=== PATIENT | male | born 1975 | race Caucasian/White ===

== ENCOUNTER 2018-03-25 12:24 | Emergency (ER) | payer BC ==
--- NOTE | 2018-03-25 12:34 | UC ---
Throat Pain/Nasal Jose HPI - HPI Summary HPI Summary: 42 yo male presents with sinus pain/pressure/congestion and green nasal discharge since yesterday. He has been taking sudafed with no relief. Says that he thinks he has a sinus infection. Denies fever, chills, sore through, cough. - History of Current Complaint Stated Complaint: SINUS COMPLAINT Time Seen by Provider: 03/25/18 12:33 Hx Obtained From: Patient Onset/Duration: Sudden Onset Severity: Mild Pain Intensity: 4 Pain Scale Used: 0-10 Numeric - Allergies/Home Medications Allergies/Adverse Reactions: Allergies Allergy/AdvReac Type Severity Reaction Status Date / Time No Known Allergies Allergy Verified 03/25/18 12:38 Home Medications: Home Medications Escitalopram (NF) [Lexapro 10 mg (NF)] 10 mg PO DAILY 03/25/18 [History Confirmed 03/25/18] Hydrochlorothiazide TAB* [Hydrodiuril TAB*] 25 mg PO DAILY 03/25/18 [History Confirmed 03/25/18] Insulin Lispro [Humalog] 0 unit SC ACHS 03/25/18 [History Confirmed 03/25/18] Insulin NPH Human Isophane [Humulin N Kwikpen] 10 unit SC BEDTIME 03/25/18 [ History Confirmed 03/25/18] Insulin NPH Human Isophane [Humulin N Kwikpen] 15 unit SC QPM 03/25/18 [History Confirmed 03/25/18] Insulin NPH Human Isophane [Humulin N Kwikpen] 25 unit SC QAM 03/25/18 [History Confirmed 03/25/18] Insulin Regular, Human [Humulin R U-500 Kwikpen] 2 unit SC BID 03/25/18 [ History Confirmed 03/25/18] Lisinopril TAB* [Prinivil TAB*] 40 mg PO DAILY 03/25/18 [History Confirmed 03/25] Multivitamin with Minerals [One Daily Complete] 1 each PO DAILY 03/25/18 [ History Confirmed 03/25/18] Simvastatin TAB(NF) [Zocor(NF)] 20 mg PO DAILY 03/25/18 [History Confirmed 03/25] PMH/Surg Hx/FS Hx/Imm Hx Endocrine History: Diabetes, Dyslipidemia Cardiovascular History: Hypertension Psychological History: Anxiety - Surgical History Surgical History: None - Family History Known Family History: Positive: Hypertension Negative: Diabetes - Social History Occupation: Employed Full-time Lives: With Family Alcohol Use: Rare Substance Use Type: None Smoking Status (MU): Never Smoked Tobacco Review of Systems Constitutional: Negative Skin: Negative Eyes: Negative ENT: Nasal Discharge, Sinus Congestion, Sinus Pain/Tenderness Respiratory: Negative Cardiovascular: Negative Gastrointestinal: Negative Neurological: Negative Psychological: Negative All Other Systems Reviewed And Are Negative: Yes Physical Exam - Summary Physical Exam Summary: GENERAL: NAD. WDWN. No pain distress. SKIN: No rashes, sores, lesions, or open wounds. HEENT: Head: AT/NC Eyes: EOM intact. Conjunctiva clear without inflammation or discharge. Ears: Hearing grossly normal. TMs intact, no bulging, erythema, or edema. Nose: Nasal mucosa pink and moist. Mildly TTP maxillary and frontal sinus. Throat: Posterior oropharynx without exudates, erythema, or tonsillar enlargement. Uvula midline. NECK: Supple. Nontender. No lymphadenopathy. CHEST: CTAB. No r/r/w. No accessory muscle use. Breathing comfortably and in no distress. CV: RRR. Without m/r/g. Pulses intact. Cap refill <2seconds NEURO: Alert. CN II-XII grossly intact. PSYCH: Age appropriate behavior. Triage Information Reviewed: Yes Vital Signs: Vital Signs: Temp Pulse Resp BP Pulse Ox 99.2 F 82 16 118/72 98 03/25/18 12:45 03/25/18 12:45 03/25/18 12:45 03/25/18 12:45 03/25/18 12:45 Vital Signs Reviewed: Yes Throat Pain/Nasal Course/Dx - Course Course Of Treatment: Sinusitis - could very well be viral given that his symptoms began yesterday. Advised to stop sudafed and try mucinex, nasonex, and netti pot. - Differential Dx/Diagnosis Provider Diagnoses: Sinusitis Discharge - Sign-Out/Discharge Documenting (check all that apply): Patient Departure All imaging exams completed and their final reports reviewed: No Studies - Discharge Plan Condition: Stable Disposition: HOME Patient Education Materials: Rhinosinusitis (DC) Forms: *Work Release Referrals: Kevin Ochoa MD [Primary Care Provider] - Additional Instructions: If you develop a fever, shortness of breath, chest pain, new or worsening symptoms - please call your PCP or go to the ED. 1) Stop sudafed and try taking Mucinex and using Flonase or Nasonex over the counter. If your symptoms persist for another 4-5 days, please call our office. - Billing Disposition and Condition Condition: STABLE Disposition: Home
[2018-03-25 12:48] VITALS: BP 118/72
== END 2018-03-25 13:00 | disposition home or self-care (01) ==
LOC: UCCORT 12:24
DX: J32.9 Chronic sinusitis, unspecified (principal); E11.9 Type 2 diabetes mellitus without complications; Z79.4 Long term (current) use of insulin; I10 Essential (primary) hypertension; F41.9 Anxiety disorder, unspecified
CPT/HCPCS: 99212; G0463

== ENCOUNTER 2018-07-03 10:16 | Emergency (ER) | payer BC ==
[2018-07-03 10:31] VITALS: BP 140/86
--- OUTSIDE RECORDS SUMMARY | 2018-07-03 10:48 | XMS REPORT | Continuity of Care Document ---
:1975 External Reference #:[id number] Author Name Kevin Vaughn M.D. Address [address] [place] [address], [address] [place] [address] Care Team Providers Name Role Phone Kevin Vaughn M.D. Care Team Information Reproduction Specialist Unavailable Payers Type Date Identification Numbers Payment Provider Subscriber Effective: 2007 Policy Number: [id number] [facility] [place] PayID: [id number] [address] [address] [place] [address] Effective: 2006 Policy Number: [id number] [facility] [place] Expires: 2007 PayID: [id number] [address] [address] [place] [address] Advance Directives Description No Information Available Problems Date Description Provider Status Onset: 09/13/2010 Type 1 diabetes mellitus uncontrolled Charli Cummins M.D. Active Onset: 09/13/2010 Hyperlipidemia Charli Cummins M.D. Active Onset: 09/13/2010 Benign essential hypertension Charli Cummins M.D. Active Onset: 08/13/2015 Type 1 diabetes mellitus Charli Cummins M.D. Active Onset: 01/11/2017 Anxiety state Charli Cummins M.D. Active Onset: 09/19/2011 Obesity Charli Cummins M.D. Inactive Inactive: 09/20/2012 Onset: 01/29/2012 Overweight Charli Cummins M.D. Inactive Inactive: 11/05/2014 Family History Date Family Member(s) Problem(s) Comments : (age 73 Years) Father due to Heart Disease Mother 67 First Sister 49 Social History Type Date Description Comments Sex Unknown Marital Status Cigarette Use Negative For current cigarette smoker ETOH Use does not use alcohol Tobacco Use Start: Unknown Patient has never smoked Smoking Status Reviewed: 06/17/18 Patient has never smoked Exercise Type/Frequency exercises regularly Allergies, Adverse Reactions, Alerts Description No Known Drug Allergies Medications Medication Date Status Form Strength Qnty SIG Indications Ordering Provider Lancet Device 02/26 Active Misc 1unit use as Kevin With Ejector s directed Emory Vaughn BD Pen 11/09 Active Misc 31G X 8 200un use as Kevin Needle/Short/Ultr mm its directed- [place], afine/31G X 12/19" bid-tid M.D. BD Insulin 11/09 Active Misc 31G X 200un use qid Kevin Syringe /12/19" 0.5 its or as Joset, Ultrafine/0.5ML/3 ML directed M.DSilvano 1G X 12/19" Accu-Chek Compact 01/11 Active Strips 153un test 8-10 Kevin Test Drum its times per cecelia Vaughn M.DSilvano Escitalopram 08/25 Active Tablets 10mg 30tab take 1 F41.9 Kevin Oxalate s tablet by [place], mouth M.D. every day Humalog Kwikpen 07/10 Active Solution 100Unit/M 30uni Use as Pen-Inject L ts Directed Johana, With M.D. Meals Per Sliding Scale Maximum Daily Dose 15 Units Simvastatin 08/13 Active Tablets 40mg 90tab Take 1 E10.9 Kevin s Tablet By [place], Mouth M.D. Every Day Accu-Chek Compact 06/17 Active Strips 408un use as E10.9 Kevin Plus its directed, [place], 8-10 M.D. times daily Glucagon 01/30 Active Kit 1mg 2unit use as E10.9 Charli M. Emergency s directed Emory Cummins Accu-Chek Soft 03/12 Active Misc 200un use as E11.9 Kevin Touch Lancets its upto four [place], times a M.D. day or as directed Hydrochlorothiazi 12/04 Active Tablets 25mg 90tab take 1 Kevin de s tablet by Johana, mouth one M.D. time daily Lisinopril 07/19 Active Tablets 40mg 90tab Take 1 s Tablet By [place], Mouth M.D. Every Day Multivitamins Active Powder 1 PO qd Charli Emory Cummins Aspirin Active Tablets 325mg 1 po qd Naproxen Active Tablets 500mg 1 by mouth twice a day as needed Humulin N Active Suspension 100Unit/M 20uni inject 25 L ts units in [place], the in M.D. the morning, inject 15 units in the evening, 5 units at bedtime Amoxicillin 09/06 Hx Tablets 875mg 20tab 1 by Charli Martinez s mouth Maria G, - twice a M.D. 09/16 dayx days Amoxicillin 07/17 Hx Capsules 500mg 21cap take one J01.10 s three Chetanishaky, - times a UPTWIST SPINNER 07/25 day for days Bactrim DS 04/11 Hx Tablets 800-160mg 20tab 1 by Charli Martinez s mouth White, - twice a M.D. Amoxicillin/Clavu 11/13 Hx Tablets 500-125mg 20tab 1 by Charli Martinez lanstefani s mouth White, - twice a M.D. Amoxicillin 09/05 Hx Tablets 875mg 20tab 1 by Charli Martinez s mouth White, - twice a M.D. BD Syringe 08/23 Hx 0.5ml 200un Use as Charli Martinez its Directed White, - M.D. 11/09 Amoxicillin 07/12 Hx Tablets 875mg 20tab 1 by Charli Martinez s mouth White, - twice a M.D. Amoxicillin 04/04 Hx Tablets 500mg 30tab 1 by Charli Martinez s mouth White, - three M.D. 04/14 times day x 10 days Accu-Chek Compact 01/09 Hx Strips 408un Use as Charli Martinez its Directed White, - 8-10 M.D. 02/15 Daily Amoxicillin 11/04 Hx Tablets 500mg 30tab 1 by Charli Martinez s mouth White, - three M.D. 11/14 times day Amoxicillin 07/22 Hx Tablets 500mg 30tab 1 by Charli Martinez s mouth White, - three M.D. 08/01 times day Amoxicillin 05/21 Hx Tablets 500mg 30tab 1 by Charli Martinez s mouth White, - three M.D. 05/31 times day Amoxicillin 04/21 Hx Tablets 500mg 30tab 1 by Charli Martinez s mouth White, - three M.D. 05/01 times day Amoxicillin 11/05 Hx Tablets 500mg 30tab 1 by Charli Martinez s mouth White, - three M.D. 11/15 times day Amoxicillin/Clavu 09/11 Hx Tablets 500-125mg 20tab 1 by Charli watson Potassium s mouth White, - twice a M.D. Amoxicillin/Clavu 08/07 Hx Tablets 500-125mg 20tab 1 by Charli watson Potassium s mouth White, - twice a M.D. Meclizine HCL 07/09 Hx Tablets 25mg 30tab 1 by Jeremy.11 Charli Martinez s mouth White, - every 6 M.D. 04/06 hours needed dizziness Azithromycin 06/29 Hx Tablets 250mg 6tabs 2 by Charli Martinez mouth White, - daily for M.D. 07/04 and then 1 by mouth daily for four days Azithromycin 05/20 Hx Tablets 250mg 6tabs 2 by Charli Martinez mouth White, - daily for M.D. 05/25 and then 1 by mouth daily for four days Amoxicillin 02/19 Hx Tablets 500mg 30tab 1 by 462 Charli Martinez s mouth White, - three M.D. 03/01 times day Humalog Kwikpen 01/30 Hx Sopn 100Unit/M 15ml as Charli L directed Maria G, - per M.D. 01/29 scale Humalog 01/30 Hx Solution 100Unit/M 101-150 Charli Martinez L 4Maria G jones, - 151-200 M.D. 01/29 6u, 201-250 8u, 251-300 10u, 301-350 12u, 351-400 14u. Humalog Kwikpen 01/30 Hx Solution 100Unit/M 15uni Use as Pen-Inject L ts Directed Maria G, - Per M.D. 10/20 Sliding Scale Amoxicillin 11/07 Hx Tablets 875mg 20tab 1 po bid s Maria G - M.D. 11/17 Azithromycin 08/01 Hx Tablets 250mg 6tabs 2 po daily for White, - one day M.D. 08/06 and 1 po daily for four days Azithromycin 06/04 Hx Tablets 250mg 6tabs 2 po daily for White, - one day M.D. 06/09 and 1 po daily for four days Humalog 05/30 Hx Solution 100Unit/M 20uni inject L ts using Maria G, - sliding M.D. 02/19 scale over 200 then use 2 units if over 300 use 5 units if over 400 use 8 units maximum daily dose 15 Azithromycin 03/17 Hx Tablets 250mg 6tabs 2 po daily for White, - one day M.D. 03/22 and 1 po daily for four days BD Pen Needle 12/19 Hx 200un use as E11.9 Charli Martinez Short 31GX5/ its directed, Maria G, - bid-tid M.D. 11/09 Amoxicillin 11/18 Hx Tablets 500mg 30tab 1 po tid s Maria G - M.D. 11/28 BD Insulin 09/20 Hx Misc 31G X 200un Charli Martinez Syringe " its Maria G, Ultrafine/U-100/0 - 0.5 ML M.D. .5ML/31G X " 10/24 Lancets 09/20 Hx Misc 26G 200un test 8 E10.9 Silvano its -10 times Maria G, - every day M.D. 01/11 Cefuroxime Axetil 08/30 Hx Tablets 500mg 20tab 1 po bid s Meg Cummins M.D. 09/09 Amoxicillin 07/23 Hx Tablets 500mg 30tab 1 po tid Charli Martinez Meg Beard M.D. 08/02 Pen Claxton 29G X 05/24 Hx Misc 29G X 200un Charli Martinez mm 12mm Meg Ralph M.D. 06/17 Cefuroxime Axetil 09/25 Hx Tablets 500mg 20tab 1 po bid 461.8 Carlotta an Aceves, - R.N.,F.N.P 10/04 . Pen Claxton Kwik 01/10 Hx 200un Charli Martinez Pen Short Meg Ralph M.D. 05/24 Glucagon 01/10 Hx Kit 1mg 2unit Use as 250.01 Charli Martinez Emergency Kit s Meg Montaño M.D. 01/30 Humulin R 01/10 Hx Solution 100Unit/M 10uni inject 2 E10.9 Kevin L ts units two [place], - times M.DSilvano 06/17 daily with n. Humalog Kwikpen 09/13 Hx Solution 100Unit/M 15uni Use as Charli Martinez /2010 L ts Sasha Cummins - as Needed M.DSilvano 01/28 BD Insulin Syr 06/16 Hx 0.5ml 200un use as Charli Martinez Meg Kyle.Miguelangel 12/10 Humalog 05/06 Hx Solution 100Unit/M 10ml uad Charli Martinez Meg Redman M.D. 05/19 Simvastatin 05/06 Hx Tablets 10mg 90tab Take 1 250.01 Charli Martinez s Tablet By Maria G - Mouth One M.DSilvano 08/13 Time Daily BD Ultra Fine 01/05 Hx Misc 3/10cc;30 200un uaconsuelo Martinez Syringe G/1/2" paco Cummins, 3/10cc;30G X 1/2" - M.DSilvano 03/06 Short Pen Claxton 01/05 Hx 200un uad Charli Martinez Meg Ralph.DSilvano 09/06 Amoxil 02/25 Hx Capsules 500mg 30cap 1 PO 3 X 381.01 Debora s Per Day X Elle, - 10 Days R.N.,F.N.P 03/08 . Glucagon 11/12 Hx Injection 10mg use sq, 250.[address] prn for Maria G, - hypoglyce M.D. 11/12 Glucagon 11/12 Hx Injection 1mg 2unit uad 250.01 Charli Martinez /Lane s Meg Cummins M.D. 01/10 Zithromax Z-Eddi 08/23 Hx Tablets 250mg 6tabs 2 by Charli Martinez mouth Maria G, - today and MBrown 11/26 then daily for 4 days BD Ultrafine 11/08 Hx 200un uad 250.01 Charli Martinez Syringe 30G c Meg Ralph.DSilvano 09/06 BD Ultrafine 07/19 Hx 200un uad Charli Martinez III Pen Claxton /2004 its Maria G (Short) - Shelley.DSilvano 01/05 HCTZ 11/16 Hx Tablets 25mg 90tab 1 po qd Charli Martinez /2004 s Meg CumminsDSilvano 12/04 Accu-Chek Comfort 11/16 Hx Strips 200un uad 250.01 Charli Martinez Curve Test Strips /2004 Meg Ralph.DSilvano 04/24 Soft Touch 11/16 Hx 400un use as 250.01 Charli Martinez Lancets its Meg Montaño.DSilvano 09/20 Glucagon 11/16 Hx Injection 10mg 2Kits use as 250.01 Charli Martinez needed Maria G, - for low M.DSilvano 11/12 blood sugar Syringes Ultra 11/16 Hx .5cc;29G; 200un use as 250.01 Charli Martinez Comfort Insulin /08/07" its directed Meg Cummins M.DSilvano 11/08 Strattera 11/16 Hx Capsules 60mg 408ca Use as 250.01 Unknown ps Directed - 05/24 Carafate 11/16 Hx Suspension 1GM/10ML 408un Use as 250.01 Unknown its Directed - 05/24 Strattera 11/16 Hx Capsules 60mg 408ca Use as 250.01 Unknown ps Directed - 05/24 Accu-Chek Compact 11/16 Hx Strips 408un use as 250.01 Charli Rosa. Test its directed, Maria G, - 8-10 M.D. 06/17 times every day Captopril Hx Tablets 25mg 60tab 1 po bid Carlotta /0000 s Yola, - R.N.,F.N.P 07/19 Humulin R Hx Injection 100Units/ 3Vial 2 units Charli M. /0000 ML s bid with Maria G, - N. M.D. 01/10 Humalog Pen Hx Injection 100Units/ 45ml ua Charli M. /0000 ML needed, Maria G, - per M.D. 05/30 scale Humalog Hx Injection 100Units/ 2Vial uad Charli M. /0000 ML s Maria G, - M.D. 08/06 Medications Administered in Office Medication Date Status Form Strength Qnty SIG Indications Ordering Provider Admin Of Administered Injection Injection/B Vaccine,One 017 P Schedule Vaccine Admin Of Administered Injection Injection/B Vaccine,One 017 P Schedule Vaccine Admin Of Administered Injection Injection/B Vaccine,One 016 P Schedule Vaccine Admin Of Administered Injection Injection/B Vaccine,One 016 P Schedule Vaccine Admin Of Administered Injection Charli M. Vaccine,One 014 Emory Cummins Vaccine Admin Of Administered Injection Charli M. Vaccine,One 013 Emory Cummins Vaccine Admin Of Administered Injection Charli M. Vaccine,One 012 Emory Cummins Vaccine Admin Of Administered Injection Charli M. Vaccine,One 011 Emory Cummins Vaccine Admin Of Administered Injection Charli M. Vaccine,One 010 Emory Cummins Vaccine Admin Of H1N1 Administered Injection Charli M. Flu A Vaccine 010 Emory Cummins Admin Of Administered Injection Charli M. Vaccine,One 009 Emory Cummins Vaccine Admin Of Administered Injection Charli M. Vaccine,One 008 Emory Cummins Vaccine Immunizations CPT Code Status Date Vaccine Lot # [id number] Given 06/01/2017 Flucelvax Quad, 0.5mL, [facility] [address]-76 [id number] Given 08/25/2016 Pneumococcal Vaccine, [facility] 9112-4185-46, 0.5 ML [id number] Q2037 Given 04/21/2016 Fluvirin 0.5 ML,[facility] 36020-821-30 [id number] Q2037 Given 04/21/2016 Fluvirin 0.5 ML,[facility] 34801-446-68 Q2037 Given 08/13/2015 Fluvirin 0.5 ML,[facility] 16587-424-46 [id number] Given 08/13/2015 Prevnar 13, [facility] 6629-7127-41. 0.5 ML [id number] Q2037 Given 06/03/2014 Fluvirin 0.5 ML,[facility] 68045-012-03 [id number] Q2037 Given 05/30/2013 Fluvirin 0.5 ML,[facility] 06449-054-36 [id number] Q2037 Given 05/24/2012 Fluvirin 0.5 ML,[facility] 56659-548-40 91708 Given 05/19/2011 Flu Vaccine Split Virus(Old 2010) [id number] Given 05/13/2010 Flu Vaccine Split Virus(2010) [id number] Given 05/06/2009 Flu Vaccine Split Virus(2010) 61396 Given 05/05/2008 Flu Vaccine Split Virus(2010) [id number] Vital Signs Date Vital Result Comment 06/17/2018 4:07pm Weight 267.00 lb Height 72 inches 6'0" BP Systolic 120 mmHg BP Diastolic 80 mmHg Heart Rate 80 /min BMI (Body Mass Index) 36.2 kg/m2 02/18/2018 2:19pm Weight 264.00 lb Height 72 inches 6'0" BP Systolic 128 mmHg BP Diastolic 72 mmHg Heart Rate 73 /min BMI (Body Mass Index) 35.8 kg/m2 09/20/2017 3:18pm Weight 267.12 lb Height 72 inches 6'0" BP Systolic 126 mmHg BP Diastolic 70 mmHg Heart Rate 75 /min BMI (Body Mass Index) 36.2 kg/m2 07/17/2017 10:51am Weight 260.38 lb Height 72 inches 6'0" BP Systolic 130 mmHg BP Diastolic 70 mmHg Body Temperature 98.8 F Heart Rate 81 /min Respiratory Rate 18 /min BMI (Body Mass Index) 35.3 kg/m2 06/01/2017 3:44pm Weight 259.50 lb Height 72 inches 6'0" BP Systolic 126 mmHg BP Diastolic 72 mmHg Heart Rate 83 /min BMI (Body Mass Index) 35.2 kg/m2 01/11/2017 3:00pm Weight 256.50 lb Height 72 inches 6'0" BP Systolic 122 mmHg BP Diastolic 76 mmHg Heart Rate 84 /min BMI (Body Mass Index) 34.8 kg/m2 08/25/2016 3:59pm Weight 250.00 lb Height 72 inches 6'0" BP Systolic 122 mmHg BP Diastolic 80 mmHg Heart Rate 76 /min BMI (Body Mass Index) 33.9 kg/m2 04/21/2016 4:06pm Weight 249.00 lb Height 72 inches 6'0" BP Systolic 120 mmHg BP Diastolic 80 mmHg Heart Rate 84 /min BMI (Body Mass Index) 33.8 kg/m2 12/17/2015 4:00pm Weight 251.00 lb Height 72 inches 6'0" BP Systolic 102 mmHg BP Diastolic 72 mmHg BP Systolic Recheck 108 mmHg BP Diastolic Recheck 72 mmHg Heart Rate 96 /min BMI (Body Mass Index) 34.0 kg/m2 08/13/2015 3:38pm Weight 246.00 lb Height 72 inches 6'0" BP Systolic 124 mmHg BP Diastolic 80 mmHg Heart Rate 88 /min BMI (Body Mass Index) 33.4 kg/m2 04/07/2015 3:00pm Weight 249.00 lb Height 72 inches 6'0" BP Systolic 124 mmHg BP Diastolic 80 mmHg Heart Rate 102 /min BMI (Body Mass Index) 33.8 kg/m2 11/05/2014 4:07pm Weight 249.00 lb Height 72 inches 6'0" BP Systolic 130 mmHg BP Diastolic 80 mmHg Heart Rate 88 /min BMI (Body Mass Index) 33.8 kg/m2 10/20/2014 3:17pm Weight 250.00 lb Height 72 inches 6'0" BP Systolic 138 mmHg BP Diastolic 70 mmHg Heart Rate 82 /min BMI (Body Mass Index) 33.9 kg/m2 07/09/2014 11:17am Weight 243.00 lb Height 72 inches 6'0" BP Systolic 130 mmHg BP Diastolic 74 mmHg Heart Rate 64 /min BMI (Body Mass Index) 33.0 kg/m2 06/03/2014 4:14pm Weight 247.00 lb Height 72 inches 6'0" BP Systolic 142 mmHg BP Diastolic 70 mmHg Heart Rate 76 /min BMI (Body Mass Index) 33.5 kg/m2 02/19/2014 4:31pm Weight 244.00 lb Height 72 inches 6'0" BP Systolic 124 mmHg BP Diastolic 70 mmHg Body Temperature 101.6 F Heart Rate 76 /min BMI (Body Mass Index) 33.1 kg/m2 01/30/2014 3:46pm Weight 240.00 lb BP Systolic 116 mmHg LG Cuff BP Diastolic 80 mmHg LG Cuff Heart Rate 88 /min 10/03/2013 4:00pm Weight 242.00 lb BP Systolic 126 mmHg LG Cuff BP Diastolic 76 mmHg LG Cuff Heart Rate 84 /min 05/30/2013 2:54pm Weight 238.00 lb BP Systolic 140 mmHg LG Cuff BP Diastolic 74 mmHg LG Cuff Heart Rate 60 /min 01/17/2013 3:49pm Weight 233.00 lb Height 72 inches 6'0" BP Systolic 116 mmHg BP Diastolic 74 mmHg Heart Rate 92 /min BMI (Body Mass Index) 31.6 kg/m2 09/20/2012 3:41pm Weight 235.00 lb Height 72 inches 6'0" BP Systolic 126 mmHg BP Diastolic 68 mmHg Heart Rate 76 /min BMI (Body Mass Index) 31.9 kg/m2 05/24/2012 3:58pm Weight 231.00 lb Height 72 inches 6'0" BP Systolic 122 mmHg BP Diastolic 82 mmHg Heart Rate 72 /min BMI (Body Mass Index) 31.3 kg/m2 01/29/2012 4:01pm Weight 228.00 lb Height 72 inches 6'0" BP Systolic 126 mmHg BP Diastolic 78 mmHg Heart Rate 80 /min BMI (Body Mass Index) 30.9 kg/m2 09/25/2011 3:14pm Height 72 inches 6'0" BP Systolic 144 mmHg BP Diastolic 80 mmHg Heart Rate 98.6 /min 09/19/2011 3:52pm Weight 232.00 lb Height 72 inches 6'0" BP Systolic 122 mmHg BP Diastolic 80 mmHg Heart Rate 72 /min BMI (Body Mass Index) 31.5 kg/m2 05/19/2011 3:46pm Weight 225.00 lb Height 72 inches 6'0" BP Systolic 128 mmHg BP Diastolic 84 mmHg Heart Rate 88 /min BMI (Body Mass Index) 30.5 kg/m2 01/10/2011 4:31pm Weight 225.00 lb Height 72 inches 6'0" BP Systolic 144 mmHg BP Diastolic 76 mmHg BP Systolic Recheck 128 mmHg BP Diastolic Recheck 82 mmHg Heart Rate 76 /min BMI (Body Mass Index) 30.5 kg/m2 09/13/2010 4:38pm Weight 220.00 lb Height 72 inches 6'0" BP Systolic 124 mmHg BP Diastolic 86 mmHg Heart Rate 72 /min BMI (Body Mass Index) 29.8 kg/m2 05/13/2010 2:55pm Weight 224.00 lb Height 72 inches 6'0" BP Systolic 110 mmHg LG Cuff BP Diastolic 72 mmHg LG Cuff Heart Rate 88 /min BMI (Body Mass Index) 30.4 kg/m2 01/04/2010 2:43pm Weight 222.00 lb BP Systolic 140 mmHg LG Cuff BP Diastolic 76 mmHg LG Cuff BP Systolic Recheck 120 mmHg BP Diastolic Recheck 87 mmHg Heart Rate 60 /min 09/08/2009 2:49pm Weight 222.00 lb BP Systolic 148 mmHg BP Diastolic 80 mmHg BP Systolic Recheck 122 mmHg BP Diastolic Recheck 84 mmHg Heart Rate 88 /min 05/06/2009 3:00pm Weight 221.00 lb BP Systolic 140 mmHg BP Diastolic 70 mmHg Heart Rate 80 /min 01/05/2009 3:44pm Weight 219.00 lb BP Systolic 110 mmHg BP Diastolic 66 mmHg Heart Rate 80 /min Glucose Meter 138 FBS AT [facility]. 09/01/2008 2:59pm Weight 210.00 lb BP Systolic 140 mmHg BP Diastolic 64 mmHg BP Systolic Recheck 123 mmHg BP Diastolic Recheck 60 mmHg Heart Rate 88 /min 05/05/2008 2:45pm Weight 212.00 lb BP Systolic 120 mmHg BP Diastolic 58 mmHg Heart Rate 84 /min 01/01/2008 2:07pm Weight 209.00 lb BP Systolic 130 mmHg BP Diastolic 76 mmHg Heart Rate 84 /min 08/21/2007 4:19pm Weight 208.00 lb BP Systolic 140 mmHg BP Diastolic 82 mmHg BP Systolic Recheck 122 mmHg BP Diastolic Recheck 80 mmHg 04/24/2007 3:19pm Weight 209.00 lb BP Systolic 156 mmHg BP Diastolic 56 mmHg Heart Rate 92 /min 02/25/2007 2:46pm Weight 212.00 lb BP Systolic 118 mmHg BP Diastolic 78 mmHg Heart Rate 76 /min 12/26/2006 3:05pm Weight 210.00 lb BP Systolic 130 mmHg BP Diastolic 68 mmHg Heart Rate 88 /min 08/22/2006 1:32pm Weight 215.00 lb BP Systolic 120 mmHg BP Diastolic 72 mmHg Body Temperature 98.4 F Heart Rate 76 /min 08/15/2006 8:53am Weight 210.00 lb BP Systolic 142 mmHg BP Diastolic 88 mmHg BP Systolic Recheck 122 mmHg BP Diastolic Recheck 88 mmHg Heart Rate 76 /min Glucose Meter 165 5HRS Fasing, AT [facility] [employer]. 03/14/2006 2:44pm Weight 208.00 lb BP Systolic 130 mmHg BP Diastolic 80 mmHg Heart Rate 80 /min 11/08/2005 3:08pm Weight 212.00 lb BP Systolic 120 mmHg BP Diastolic 76 mmHg Heart Rate 76 /min 07/19/2005 2:57pm Weight 209.00 lb BP Systolic 154 mmHg BP Diastolic 70 mmHg BP Systolic Recheck 150 mmHg BP Diastolic Recheck 84 mmHg Heart Rate 84 /min BMI (Body Mass Index) 6.2 kg/m2 03/22/2005 3:12pm Weight 204.00 lb Height 73 inches 6'1" BP Systolic 162 mmHg BP Diastolic 82 mmHg Heart Rate 92 /min BMI (Body Mass Index) 26.9 kg/m2 12/21/2004 3:50pm Weight 209.00 lb Height 73 inches 6'1" BP Systolic 158 mmHg BP Diastolic 88 mmHg BP Systolic Recheck 140 mmHg BP Diastolic Recheck 90 mmHg Heart Rate 80 /min BMI (Body Mass Index) 27.6 kg/m2 11/16/2004 4:29pm Weight 216.00 lb Height 73 inches 6'1" BP Systolic 160 mmHg BP Diastolic 94 mmHg Heart Rate 80 /min BMI (Body Mass Index) 28.5 kg/m2 Results Test Date Facility Test Result H/L Range Note Laboratory test 06/12/2018 [facility] %A1c 7.5 % High 4.8- 6.0 1 finding [address] [address] [phone] Lipid Studies 06/12/2018 [facility] Triglycerides 91 mg/dL 0-[address] [id number] [phone] Cholesterol 166 mg/dL 120-200 HDL Cholesterol 50.0 mg/dL 40-60 VLDL (Calc.) 18 mg/dL <31 Cholesterol/HDL 3.32 Ratio <5.00 LDL (Calc.) 98 mg/dL 0-99 2 Comp. Metabolic 06/12/2018 [facility] Glucose 60.3 mg/dL Low 65-[address] [id number] [phone] BUN 13.4 mg/dL 7-21 Co2 26.0 mmol/L 22-30 Sodium 140 mmol/L 137-145 Potassium 4.6 mmol/L 3.6-5.2 Chloride 104 mmol/L 98-110 Calcium 9.8 mg/dL 9-10.5 Creatinine 0.84 mg/dL 0.52-1.25 eGFR (Male) >60 3 Total Protein 7.08 g/dL 6.3-8.2 Albumin 3.76 g/dL 3.3-4.50 Sgot (Ast) 14.0 U/L 5-40 Alk Phosphatase 93.0 U/L 38-126 Total Bilirubin 0.46 mg/dL 0.2-1.3 SGPT (Alt) 13.0 U/L 7-56 Anion Gap (Calc) 10.0 7-16 BUN/Crea Ratio 16.0 Ratio 7-25 Globulin (Calc) 3.32 g/dL 2.3-3.5 A/G Ratio (Calc) 1.1 Ratio 1.1-2.2 Laboratory test 02/15/2018 [facility] %A1c 7.3 % High 4.8- 6.0 4 finding [address] [id number] [phone] Lipid Studies 02/15/2018 [facility] Triglycerides 59 mg/dL 0-[address] [address] [phone] Cholesterol 139 mg/dL 120-200 HDL Cholesterol 48.0 mg/dL 40-60 VLDL (Calc.) 12 mg/dL <31 Cholesterol/HDL 2.90 Ratio <5.00 LDL (Calc.) 79 mg/dL 0-99 5 Comp. Metabolic 02/15/2018 [facility] Glucose 244.6 mg/dL High 65-[address] [id number] [phone] BUN 15.6 mg/dL 7-21 Co2 27.6 mmol/L 22-30 Sodium 135 mmol/L Low 137-145 Potassium 4.7 mmol/L 3.6-5.2 Chloride 99 mmol/L 98-110 Calcium 10.0 mg/dL 9-10.5 Creatinine 0.97 mg/dL 0.52-1.25 eGFR (Male) >60 6 Total Protein 7.06 g/dL 6.3-8.2 Albumin 3.80 g/dL 3.3-4.50 Sgot (Ast) 17.0 U/L 5-40 Alk Phosphatase 88.0 U/L 38-126 Total Bilirubin 0.84 mg/dL 0.2-1.3 SGPT (Alt) 19.0 U/L 7-56 Anion Gap (Calc) 8.4 7-16 BUN/Crea Ratio 16.1 Ratio 7-25 Globulin (Calc) 3.26 g/dL 2.3-3.5 A/G Ratio (Calc) 1.2 Ratio 1.1-2.2 Ua Clinitek 09/20/2017 In Office Labs Ua Color Yellow Ua Appearance Clear Ua Glucose Negative Negative Ua Bilirubin Negative Negative Ua Ketones Negative Negative Ua Specific Halsey 1.020 1.003 - 1.030 Ua Blood Negative Negative Ua PH 7.0 5.0-8.0 Ua Protein Negative Negative Ua Urobilinogen 0.2 E.U./dL Normal Ua Nitrite Negative Negative Ua Leuko Negative Negative Microalbumin Clinitek 09/20/2017 In Office Labs Urine Albumin 10 mg/L 10 -150 Random Urine Creatinine Random 100 mg/dL 10-300 Comp. Metabolic 2017 [facility] Glucose 208.6 mg/dL High 65-[address] [address] [phone] BUN 12.4 mg/dL 7-21 Co2 27.7 mmol/L 22-30 Sodium 139 mmol/L 137-145 Potassium 4.7 mmol/L 3.6-5.2 Chloride 101 mmol/L 98-110 Calcium 10.0 mg/dL 9-10.5 Creatinine 1.02 mg/dL 0.52-1.25 eGFR (Male) >60 7 Total Protein 6.78 g/dL 6.3-8.2 Albumin 3.47 g/dL 3.3-4.50 Sgot (Ast) 18.0 U/L 5-40 Alk Phosphatase 101.0 U/L 38-126 Total Bilirubin 0.40 mg/dL 0.2-1.3 SGPT (Alt) 20.0 U/L 7-56 Anion Gap (Calc) 10.3 7-16 BUN/Crea Ratio 12.2 Ratio 7-25 Globulin (Calc) 3.31 g/dL 2.3-3.5 A/G Ratio (Calc) 1.0 Ratio Low 1.1-2.2 Laboratory test 2017 [facility] %A1c 7.6 % High 4.8- 6.0 finding [address] [address] [phone] Lipid Studies 2017 [facility] Triglycerides 72 mg/dL 0-[address] [address] [phone] Cholesterol 157 mg/dL 120-200 HDL Cholesterol 50.0 mg/dL 40-60 VLDL (Calc.) 14 mg/dL <31 Cholesterol/HDL 3.14 Ratio <5.00 LDL (Calc.) 93 mg/dL 0-99 8 Lipid Studies 05/23/2017 [facility] Triglycerides 55 mg/dL 0-[address] [id number] [phone] Cholesterol 153 mg/dL 120-200 HDL Cholesterol 49.0 mg/dL 40-60 VLDL (Calc.) 11 mg/dL <31 Cholesterol/HDL 3.12 Ratio <5.00 LDL (Calc.) 93 mg/dL 0-99 9 Laboratory test 05/23/2017 [facility] %A1c 7.1 % High 4.8- 6.0 finding [address] [address] [phone] Comp. Metabolic 05/23/2017 [facility] Glucose 272.6 mg/dL High 65-[address] [address] [phone] BUN 13.3 mg/dL 7-21 Co2 26.3 mmol/L 22-30 Sodium 136 mmol/L Low 137-145 Potassium 4.2 mmol/L 3.6-5.2 Chloride 100 mmol/L 98-110 Calcium 9.6 mg/dL 9-10.5 Creatinine 0.98 mg/dL 0.52-1.25 eGFR (Male) >60 10 Total Protein 7.27 g/dL 6.3-8.2 Albumin 3.72 g/dL 3.3-4.50 Sgot (Ast) 17.0 U/L 5-40 Alk Phosphatase 94.0 U/L 38-126 Total Bilirubin 0.70 mg/dL 0.2-1.3 SGPT (Alt) 11.0 U/L 7-56 Anion Gap (Calc) 9.7 7-16 BUN/Crea Ratio 13.6 Ratio 7-25 Globulin (Calc) 3.55 g/dL High 2.3-3.5 A/G Ratio (Calc) 1.0 Ratio Low 1.1-2.2 Comp. Metabolic 01/02/2017 [facility] Glucose 179.0 mg/dL High 65-[address] [address] [phone] BUN 14.2 mg/dL 7-21 Co2 32.0 mmol/L High 22-30 Sodium 137 mmol/L 137-145 Potassium 4.7 mmol/L 3.6-5.2 Chloride 100 mmol/L 98-110 Calcium 9.6 mg/dL 9-10.5 Creatinine 1.05 mg/dL 0.52-1.25 eGFR (Male) >60 11 Total Protein 7.27 g/dL 6.3-8.2 Albumin 3.82 g/dL 3.3-4.50 Sgot (Ast) 16.0 U/L 5-40 Alk Phosphatase 92.0 U/L 38-126 Total Bilirubin 0.52 mg/dL 0.2-1.3 SGPT (Alt) 15.0 U/L 7-56 Anion Gap (Calc) 5.0 Low 7-16 BUN/Crea Ratio 13.5 Ratio 7-25 Globulin (Calc) 3.45 g/dL 2.3-3.5 A/G Ratio (Calc) 1.1 Ratio 1.1-2.2 Lipid Studies 01/02/2017 [facility] Triglycerides 59 mg/dL 0-[address] [address] [phone] Cholesterol 152 mg/dL 120-200 HDL Cholesterol 49.0 mg/dL 40-60 VLDL (Calc.) 12 mg/dL <31 Cholesterol/HDL 3.10 Ratio <5.00 LDL (Calc.) 91 mg/dL 0-99 12 Laboratory test 01/02/2017 [facility] %A1c 7.1 % High 4.8- 6.0 finding [address] [address] [phone] Laboratory test 08/17/2016 [facility] %A1c 7.4 % High 4.8- 6.0 13 finding [address] [address] [phone] Comp. Metabolic 08/17/2016 [facility] Glucose 120.0 High 65- 110 77 [facility] 310 mg/[place] [address] [phone] BUN 15.5 mg/dL 7-21 Co2 25.1 mmol/L 22-30 Sodium 136 mmol/L Low 137-145 Potassium 4.2 mmol/L 3.6-5.2 Chloride 102 mmol/L 98-110 Calcium 9.7 mg/dL 9-10.5 Creatinine 0.96 mg/dL 0.52-1.25 Total Protein 6.62 g/dL 6.3-8.2 Albumin 3.75 g/dL 3.3-4.50 Sgot (Ast) 15.0 U/L 5-40 Alk Phosphatase 90.0 U/L 38-126 Total Bilirubin 0.49 mg/dL 0.2-1.3 SGPT (Alt) 16.0 U/L 7-56 Anion Gap (Calc) 8.9 7-16 BUN/Crea Ratio 16.1 Ratio 7-25 Globulin (Calc) 2.87 g/dL 2.3-3.5 A/G Ratio (Calc) 1.3 Ratio 1.1-2.2 Lipid Studies 08/17/2016 [facility] Triglycerides 79 mg/dL 0-[address] [address] [phone] Cholesterol 138 mg/dL 120-200 HDL Cholesterol 48.0 mg/dL 40-60 VLDL (Calc.) 16 mg/dL <31 Cholesterol/HDL 2.88 Ratio <5.00 LDL (Calc.) 74 mg/dL 0-99 14 Laboratory test 08/17/2016 [facility] eGFR (Male) >60 15 finding [address] [address] [phone] Laboratory test 04/14/2016 [facility] eGFR (Male) >60 16 finding [address] [address] [phone] Laboratory test 04/14/2016 [facility] %A1c 7.6 % High 4.2- 5. 17 finding 77 [facility] 310 [address] [place], [place] [id number] [phone] Comp. Metabolic 04/14/2016 [facility] Glucose 212.3 High 65- 110 77 [facility] 310 mg/[place] [address] [phone] BUN 12.1 mg/dL 7-21 Co2 27.5 mmol/L 22-30 Sodium 137 mmol/L 137-145 Potassium 5.1 mmol/L 3.6-5.2 Chloride 102 mmol/L 98-110 Calcium 9.6 mg/dL 9-10.5 Creatinine 1.02 mg/dL 0.52-1.25 Total Protein 6.60 g/dL 6.3-8.2 Albumin 3.76 g/dL 3.3-4.50 Sgot (Ast) 13.0 U/L 5-40 Alk Phosphatase 88.0 U/L 38-126 Total Bilirubin 0.69 mg/dL 0.2-1.3 SGPT (Alt) 12.0 U/L 7-56 Anion Gap (Calc) 7.5 7-16 BUN/Crea Ratio 11.9 Ratio 7-25 Globulin (Calc) 2.84 g/dL 2.3-3.5 A/G Ratio (Calc) 1.3 Ratio 1.1-2.2 Lipid Studies 04/14/2016 [facility] Triglycerides 75 mg/dL 0-149 77 [facility] 310 [place] [address] [phone] Cholesterol 129 mg/dL 120-200 HDL Cholesterol 42.0 mg/dL 40-60 VLDL (Calc.) 15 mg/dL <31 Cholesterol/HDL 3.07 Ratio <5.00 LDL (Calc.) 72 mg/dL 0-99 18 Laboratory test 12/06/2015 [facility] %A1c 7.9 % High 4.2- 5.8 19 finding 77 [facility] 310 [place] [address] [phone] Comp. Metabolic 12/06/2015 [facility] Glucose 181.7 High 65- 110 77 [facility] 310 mg/dL [place], [place] [id number] [phone] BUN 10.9 mg/dL 7-21 Co2 27.9 mmol/L 22-30 Sodium 137 mmol/L 137-145 Potassium 4.3 mmol/L 3.6-5.2 Chloride 101 mmol/L 98-110 Calcium 9.3 mg/dL 9-10.5 Creatinine 0.94 mg/dL 0.52-1.25 Total Protein 6.50 g/dL 6.3-8.2 Albumin 3.74 g/dL 3.3-4.50 Sgot (Ast) 17.0 U/L 5-40 Alk Phosphatase 91.0 U/L 38-126 Total Bilirubin 0.61 mg/dL 0.2-1.3 SGPT (Alt) 16.0 U/L 7-56 Anion Gap (Calc) 8.1 7-16 BUN/Crea Ratio 11.6 Ratio 7-25 Globulin (Calc) 2.76 g/dL 2.3-3.5 A/G Ratio (Calc) 1.4 Ratio 1.1-2.2 Lipid Studies 12/06/2015 [facility] Triglycerides 67 mg/dL 0-[address] [phone] Cholesterol 131 mg/dL 120-200 HDL Cholesterol 44.0 mg/dL 40-60 VLDL (Calc.) 13 mg/dL <31 Cholesterol/HDL 2.98 Ratio <5.00 LDL (Calc.) 74 mg/dL 0-99 20 Laboratory test 12/06/2015 [facility] eGFR (Male) 93 >59 21 finding [address] [phone] Laboratory test 08/02/2015 [facility] %A1c 8.0 % High 4.2- 5.8 22 finding [address] [phone] Comp. Metabolic 08/02/2015 [facility] Glucose 51.1 Low 65- 110 77 [facility] 310 mg/dL [place], [place] [id number] [phone] BUN 12.7 mg/dL 7-21 Co2 28.9 mmol/L 22-30 Sodium 138 mmol/L 137-145 Potassium 3.7 mmol/L 3.6-5.2 Chloride 99 mmol/L 98-110 Calcium 10.0 mg/dL 9-10.5 Creatinine 0.86 mg/dL 0.52-1.25 Total Protein 7.48 g/dL 6.3-8.2 Albumin 4.06 g/dL 3.3-4.50 Sgot (Ast) 18.0 U/L 5-40 Alk Phosphatase 94.0 U/L 38-126 Total Bilirubin 0.45 mg/dL 0.2-1.3 SGPT (Alt) 16.0 U/L 7-56 Anion Gap (Calc) 10.1 7-16 BUN/Crea Ratio 14.8 Ratio 7-25 Globulin (Calc) 3.42 g/dL 2.3-3.5 A/G Ratio (Calc) 1.2 Ratio 1.1-2.2 Lipid Studies 08/02/2015 [facility] Triglycerides 112 mg/dL 0-[address] [phone] Cholesterol 156 mg/dL 120-200 HDL Cholesterol 47.0 mg/dL 40-60 VLDL (Calc.) 22 mg/dL <31 Cholesterol/HDL 3.32 Ratio <5.00 LDL (Calc.) 87 mg/dL 0-99 23 Laboratory test 08/02/2015 [facility] eGFR (Male) 104 >59 24 finding [address] [phone] Laboratory test 03/29/2015 [facility] eGFR (Male) 83 >59 25 finding [address] [phone] Lipid Studies 03/29/2015 [facility] Triglycerides 45 mg/dL 0-[address] [phone] Cholesterol 130 mg/dL 120-200 HDL Cholesterol 42.0 mg/dL 40-60 VLDL (Calc.) 9 mg/dL <31 Cholesterol/HDL 3.10 Ratio <5.00 LDL (Calc.) 79 mg/dL 0-99 26 Comp. Metabolic 03/29/2015 [facility] Glucose 150.0 mg/dL High 65-[address] [phone] BUN 20.3 mg/dL 7-21 Co2 26.4 mmol/L 22-30 Sodium 138 mmol/L 137-145 Potassium 4.5 mmol/L 3.6-5.2 Chloride 104 mmol/L 98-110 Calcium 9.6 mg/dL 9-10.5 Creatinine 1.05 mg/dL 0.52-1.25 Total Protein 6.81 g/dL 6.3-8.2 Albumin 3.75 g/dL 3.3-4.50 Sgot (Ast) 17.0 U/L 5-40 Alk Phosphatase 88.0 U/L 38-126 Total Bilirubin 0.48 mg/dL 0.2-1.3 SGPT (Alt) 11.0 U/L 7-56 Anion Gap (Calc) 7.6 7-16 BUN/Crea Ratio 19.3 Ratio 7-25 Globulin (Calc) 3.06 g/dL 2.3-3.5 A/G Ratio (Calc) 1.2 Ratio 1.1-2.2 Laboratory test 03/29/2015 [facility] %A1c 7.3 % High 4.2- 5.8 27 finding [address] [address] [phone] Comp. Metabolic 10/27/2014 [facility] Glucose 103.6 65-110 77 [facility] 310 mg/[place] [address] [phone] BUN 14.3 mg/dL 7-21 Co2 27.1 mmol/L 22-30 Sodium 139 mmol/L 137-145 Potassium 4.4 mmol/L 3.6-5.2 Chloride 103 mmol/L 98-110 Calcium 10.0 mg/dL 9-10.5 Creatinine 0.99 mg/dL 0.52-1.25 Total Protein 7.12 g/dL 6.3-8.2 Albumin 3.91 g/dL 3.3-4.50 Sgot (Ast) 17.0 U/L 5-40 Alk Phosphatase 89.0 U/L 38-126 Total Bilirubin 0.61 mg/dL 0.2-1.3 SGPT (Alt) 16.0 U/L 7-56 Anion Gap (Calc) 8.9 7-16 BUN/Crea Ratio 14.4 Ratio 7-25 Globulin (Calc) 3.21 g/dL 2.3-3.5 A/G Ratio (Calc) 1.2 Ratio 1.1-2.2 Lipid Studies 10/27/2014 [facility] Triglycerides 88 mg/dL 0-[address] [address] [phone] Cholesterol 144 mg/dL 120-200 HDL Cholesterol 47.0 mg/dL 40-60 VLDL (Calc.) 18 mg/dL <31 Cholesterol/HDL 3.06 Ratio <5.00 LDL (Calc.) 79 mg/dL 0-99 28 Laboratory test 10/27/2014 [facility] eGFR (Male) 88 >59 29 finding [address] [phone] Laboratory test 10/27/2014 [facility] %A1c 7.9 % High 4.2- 5.8 30 finding [address] 9403549 [phone] Laboratory test 05/25/2014 [facility] %A1c 7.8 % High 4.2- 5.8 31 finding [address] [phone] Comp. Metabolic 05/25/2014 [facility] Glucose 166.2 High 65- 110 77 [facility] 310 mg/dL [place], [place] [id number] [phone] BUN 16.9 mg/dL 7-21 Co2 24.9 mmol/L 22-30 Sodium 138 mmol/L 137-145 Potassium 4.3 mmol/L 3.6-5.2 Chloride 103 mmol/L 98-110 Calcium 10.0 mg/dL 9-10.5 Creatinine 1.06 mg/dL 0.52-1.25 Total Protein 7.06 g/dL 6.3-8.2 Albumin 3.84 g/dL 3.3-4.50 Sgot (Ast) 14.0 U/L 5-40 Alk Phosphatase 78.0 U/L 38-126 Total Bilirubin 0.32 mg/dL 0.2-1.3 SGPT (Alt) 11.0 U/L 7-56 Anion Gap (Calc) 10.1 7-16 BUN/Crea Ratio 15.9 Ratio 7-25 Globulin (Calc) 3.22 g/dL 2.3-3.5 A/G Ratio (Calc) 1.2 Ratio 1.1-2.2 Lipid Studies 05/25/2014 [facility] Triglycerides 75 mg/dL 0-[address] [address] [phone] Cholesterol 148 mg/dL 120-200 HDL Cholesterol 46.0 mg/dL 40-60 VLDL (Calc.) 15 mg/dL <31 Cholesterol/HDL 3.22 Ratio <5.00 LDL (Calc.) 87 mg/dL 0-99 32 Laboratory test 05/25/2014 [facility] eGFR (Male) 82 >59 33 finding [address] [phone] Laboratory test 02/19/2014 [facility] [place] Culture Pathogens [address] Throat-Compr were n [place] [address] ehensive NOTE> [phone] Laboratory test 01/19/2014 [facility] %A1c 8.0 % High 4.2- 5.8 35 finding [address] [address] [phone] Comp. Metabolic 01/19/2014 [facility] Glucose 65.3 mg/dL 65 -[address] [address] [phone] BUN 15.6 mg/dL 7-21 Co2 25.4 mEq/L 22-30 Sodium 140 mEq/L 137-145 Potassium 4.2 mEq/L 3.6-5.2 Chloride 103 mEq/L 98-110 Calcium 9.3 mg/dL 9-10.5 Creatinine 1.02 mg/dL 0.52-1.25 Total Protein 7.05 g/dL 6.3-8.2 Albumin 3.79 g/dL 3.3-4.50 Sgot (Ast) 15.0 IU/L 5-40 Alk Phosphatase 88.0 IU/L 38-126 Total Bilirubin 0.29 mg/dL 0.2-1.3 SGPT (Alt) 16.0 IU/L 7-56 Anion Gap (Calc) 11.6 7-16 BUN/Crea Ratio 15.3 Ratio 7-25 Globulin (Calc) 3.26 g/dL 2.3-3.5 A/G Ratio (Calc) 1.2 Ratio 1.1-2.2 Lipid Studies 01/19/2014 [facility] Triglycerides 69 mg/dL 0-[address] [address] [phone] Cholesterol 144 mg/dL 120-200 HDL Cholesterol 45.0 mg/dL 40-60 VLDL (Calc.) 14 mg/dL <31 Cholesterol/HDL 3.20 Ratio <5.00 LDL (Calc.) 85 mg/dL 0-99 36 Laboratory test 01/19/2014 [facility] eGFR (Male) 86 >59 37 finding [address] [address] [phone] Laboratory test 09/26/2013 [facility] %A1c 8.7 % High 4.2- 5.8 38 finding [address] [address] [phone] Lipid Studies 09/26/2013 [facility] Triglycerides 53 mg/dL 0-[address] [address] [phone] Cholesterol 143 mg/dL 120-200 HDL Cholesterol 44.0 mg/dL 40-60 VLDL (Calc.) 11 mg/dL <31 Cholesterol/HDL 3.25 Ratio <5.00 LDL (Calc.) 88 mg/dL 0-99 39 Comp. Metabolic 09/26/2013 [facility] Glucose 123.4 mg/dL High 65-[address] [address] [phone] BUN 13.1 mg/dL 7-21 Co2 28.4 mEq/L 22-30 Sodium 139 mEq/L 137-145 Potassium 4.0 mEq/L 3.6-5.2 Chloride 103 mEq/L 98-110 Calcium 9.4 mg/dL 9-10.5 Creatinine 1.02 mg/dL 0.52-1.25 Total Protein 7.23 g/dL 6.3-8.2 Albumin 3.73 g/dL 3.3-4.50 Sgot (Ast) 18.0 IU/L 5-40 Alk Phosphatase 81.0 IU/L 38-126 Total Bilirubin 0.62 mg/dL 0.2-1.3 SGPT (Alt) 23.0 IU/L 7-56 Anion Gap (Calc) 7.6 7-16 BUN/Crea Ratio 12.8 Ratio 7-25 Globulin (Calc) 3.50 g/dL 2.3-3.5 A/G Ratio (Calc) 1.1 Ratio 1.1-2.2 Thy (TSH And Free T4) 09/26/2013 [facility] TSH 1.14 uIU/mL 0.5-6.[address] [address] [phone] Free T4 0.92 ng/dL 0.75-1.54 Laboratory test 09/26/2013 [facility] eGFR (Male) 86 >59 40 finding [address] [address] [phone] Comp. Metabolic 05/23/2013 [facility] Glucose 180.1 High 65- 110 77 [facility] 310 mg/dL [place], [place] [id number] [phone] BUN 11.0 mg/dL 7-21 Co2 26.5 mEq/L 22-30 Sodium 137 mEq/L 137-145 Potassium 4.4 mEq/L 3.6-5.0 Chloride 100 mEq/L 98-107 Calcium 9.9 mg/dL 9-10.5 Creatinine 0.98 mg/dL 0.52-1.25 Total Protein 7.03 g/dL 6.3-8.2 Albumin 4.02 g/dL 3.3-4.50 Sgot (Ast) 14.0 IU/L 5-40 Alk Phosphatase 89.0 IU/L 38-126 Total Bilirubin 0.66 mg/dL 0.2-1.3 SGPT (Alt) 12.0 IU/L 7-56 Anion Gap (Calc) 10.5 7-16 BUN/Crea Ratio 11.2 Ratio 7-25 Globulin (Calc) 3.01 g/dL 2.3-3.5 A/G Ratio (Calc) 1.3 Ratio 1.1-2.2 Laboratory test 05/23/2013 [facility] %A1c 8.4 % High 4.2- 5.8 finding [address] [address] [phone] Lipid Studies 05/23/2013 [facility] Triglycerides 57 mg/dL 0-[address] [address] [phone] Cholesterol 150 mg/dL 120-200 HDL Cholesterol 51.0 mg/dL 40-60 VLDL (Calc.) 11 mg/dL <31 Cholesterol/HDL 2.94 Ratio <5.00 LDL (Calc.) 88 mg/dL 0-99 41 Laboratory test 05/23/2013 [facility] eGFR (Male) 90 >59 42 finding [address] [phone] Comp. Metabolic 01/10/2013 [facility] Glucose 210.3 High 65- 110 77 [facility] 310 mg/dL [place], [place] 1381411 [phone] BUN 14.2 mg/dL 7-21 Co2 25.5 mEq/L 22-30 Sodium 138 mEq/L 137-145 Potassium 4.6 mEq/L 3.6-5.0 Chloride 102 mEq/L 98-107 Calcium 9.5 mg/dL 9-10.5 Creatinine 1.01 mg/dL 0.52-1.25 Total Protein 6.69 g/dL 6.3-8.2 Albumin 3.73 g/dL 3.3-4.50 Sgot (Ast) 17.0 IU/L 5-40 Alk Phosphatase 79.0 IU/L 38-126 Total Bilirubin 0.68 mg/dL 0.2-1.3 SGPT (Alt) 16.0 IU/L 7-56 Anion Gap (Calc) 10.5 7-16 BUN/Crea Ratio 14.1 Ratio 7-25 Globulin (Calc) 2.96 g/dL 2.3-3.5 A/G Ratio (Calc) 1.3 Ratio 1.1-2.2 Laboratory test 01/10/2013 [facility] %A1c 7.6 % High 4.2- 5.8 finding [address] [phone] Lipid Studies 01/10/2013 [facility] Triglycerides 49 mg/dL 0-[address] [phone] [phone] Cholesterol 139 mg/dL 120-200 HDL Cholesterol 46.0 mg/dL 40-60 VLDL (Calc.) 10 mg/dL <31 Cholesterol/HDL 3.02 Ratio <5.00 LDL (Calc.) 83 mg/dL 0-99 43 Laboratory test 01/10/2013 [facility] eGFR (Male) 87 >59 44 finding [address] [phone] Laboratory test 09/10/2012 [facility] %A1c 8.2 % High 4.2- 5.8 finding [address] [phone] Lipid Studies 09/10/2012 [facility] Triglycerides 55 mg/dL 0-[address] [phone] Cholesterol 113 mg/dL Low 120-200 HDL Cholesterol 42.0 mg/dL 40-60 VLDL (Calc.) 11 mg/dL <31 Cholesterol/HDL 2.69 Ratio <5.00 LDL (Calc.) 60 mg/dL 0-99 45 Comp. Metabolic 09/10/2012 [facility] Glucose 101.5 mg/dL 65-[address] [address] [phone] BUN 14.5 mg/dL 7-21 Co2 29.2 mEq/L 22-30 Sodium 137 mEq/L 137-145 Potassium 3.6 mEq/L 3.6-5.0 Chloride 101 mEq/L 98-107 Calcium 9.3 mg/dL 9-10.5 Creatinine 0.96 mg/dL 0.52-1.25 Total Protein 6.93 g/dL 6.3-8.2 Albumin 3.74 g/dL 3.3-4.50 Sgot (Ast) 17.0 IU/L 5-40 Alk Phosphatase 83.0 IU/L 38-126 Total Bilirubin 0.57 mg/dL 0.2-1.3 SGPT (Alt) 21.0 IU/L 7-56 Anion Gap (Calc) 6.8 Low 7-16 BUN/Crea Ratio 15.1 Ratio 7-25 Globulin (Calc) 3.19 g/dL 2.3-3.5 A/G Ratio (Calc) 1.2 Ratio 1.1-2.2 Laboratory test 09/10/2012 [facility] eGFR (Male) 93 >59 46 finding [address] [address] [phone] Laboratory test 05/13/2012 [facility] %A1c 7.7 % High 4.2- 5.8 finding [address] [address] [phone] Lipid Studies 05/13/2012 [facility] Triglycerides 54 mg/dL 0-[address] [address] [phone] Cholesterol 153 mg/dL 120-200 HDL Cholesterol 48.0 mg/dL 40-60 VLDL (Calc.) 11 mg/dL <31 Cholesterol/HDL 3.19 Ratio <5.00 LDL (Calc.) 94 mg/dL 0-99 47 Comp. Metabolic 05/13/2012 [facility] Glucose 222.4 mg/dL High 65-[address] [phone] BUN 14.1 mg/dL 7-21 Co2 24.4 mEq/L 22-30 Sodium 135 mEq/L Low 137-145 Potassium 4.5 mEq/L 3.6-5.0 Chloride 101 mEq/L 98-107 Calcium 9.8 mg/dL 9-10.5 Creatinine 1.09 mg/dL 0.52-1.25 Total Protein 7.09 g/dL 6.3-8.2 Albumin 3.98 g/dL 3.3-4.50 Sgot (Ast) 14.0 IU/L 5-40 Alk Phosphatase 88.0 IU/L 38-126 Total Bilirubin 0.52 mg/dL 0.2-1.3 SGPT (Alt) 13.0 IU/L 7-56 Anion Gap (Calc) 9.6 7-16 BUN/Crea Ratio 12.9 Ratio 7-25 Globulin (Calc) 3.11 g/dL 2.3-3.5 A/G Ratio (Calc) 1.3 Ratio 1.1-2.2 Laboratory test 05/13/2012 [facility] eGFR (Male) 80 >59 48 finding [address] [address] [phone] Laboratory test 01/23/2012 [facility] %A1c 7.8 % High 4.2- 5.8 finding [address] [address] [phone] Lipid Studies 01/23/2012 [facility] Triglycerides 48 mg/dL 0-[address] [address] [phone] Cholesterol 144 mg/dL 120-200 HDL Cholesterol 47.0 mg/dL 40-60 VLDL (Calc.) 10 mg/dL <31 Cholesterol/HDL 3.06 Ratio <5.00 LDL (Calc.) 87 mg/dL 0-99 49 Comp. Metabolic 01/23/2012 [facility] Glucose 146.7 mg/dL High 65-[address] [address] [phone] BUN 11.7 mg/dL 7-21 Co2 28.6 mEq/L 22-30 Sodium 137 mEq/L 137-145 Potassium 4.2 mEq/L 3.6-5.0 Chloride 100 mEq/L 98-107 Calcium 9.4 mg/dL 9-10.5 Creatinine 0.98 mg/dL 0.52-1.25 Total Protein 7.07 g/dL 6.3-8.2 Albumin 3.83 g/dL 3.3-4.50 Sgot (Ast) 18.0 IU/L 5-40 Alk Phosphatase 93.0 IU/L 38-126 Total Bilirubin 0.50 mg/dL 0.2-1.3 SGPT (Alt) 14.0 IU/L 7-56 Anion Gap (Calc) 8.4 7-16 BUN/Crea Ratio 11.9 Ratio 7-25 Globulin (Calc) 3.24 g/dL 2.3-3.5 A/G Ratio (Calc) 1.2 Ratio 1.1-2.2 Laboratory test 01/23/2012 [facility] eGFR (Male) 91 >59 50 finding [address] [address] [phone] Basic Metabolic 09/11/2011 [facility] Glucose 143.5 High 65- 110 77 [facility] 310 mg/dL [place], [place] [id number] [phone] BUN 14.5 mg/dL 7-21 Co2 25.9 mEq/L 22-30 Sodium 138 mEq/L 137-145 Potassium 4.0 mEq/L 3.6-5.0 Chloride 101 mEq/L 98-107 Calcium 9.7 mg/dL 9-10.5 Creatinine 0.90 mg/dL 0.52-1.25 Anion Gap (Calc) 11.1 7-16 BUN/Crea Ratio 16.1 Ratio 7-25 Lipid Studies 09/11/2011 [facility] Triglycerides 52 mg/dL 0-[address] [address] [phone] Cholesterol 142 mg/dL 120-200 HDL Cholesterol 55.0 mg/dL 40-60 VLDL (Calc.) 10 mg/dL <31 Cholesterol/HDL 2.58 Ratio <5.00 LDL (Calc.) 77 mg/dL 0-99 51 Hepatic Panel A 09/11/2011 [facility] Albumin 3.91 g/dL 3.3 -4.[address] [place] [address] [id number] [phone] Sgot (Ast) 15.0 IU/L 5-40 Alk Phosphatase 86.0 IU/L 38-126 SGPT (Alt) 18.0 IU/L 7-56 Total Bilirubin 0.39 mg/dL 0.2-1.3 Direct Bili 0.19 mg/dL 0.00-0.4 Total Protein 6.99 g/dL 6.3-8.2 Globulin (Calc) 3.08 g/dL 2.3-3.5 A/G Ratio (Calc) 1.3 Ratio 1.1-2.2 Laboratory test finding 09/11/2011 [facility] %A1c 8.2 % High 4.2-5.[address] [address] [phone] eGFR (Male) 100 >59 52 Basic Metabolic 05/09/2011 [facility] Glucose 148.2 mg/dL High 65-[address] [address] [phone] BUN 13.0 mg/dL 7-21 Co2 26.2 mEq/L 22-30 Sodium 137 mEq/L 137-145 Potassium 4.3 mEq/L 3.6-5.0 Chloride 100 mEq/L 98-107 Calcium 9.2 mg/dL 9-10.5 Creatinine 0.88 mg/dL 0.52-1.25 Anion Gap (Calc) 10.8 7-16 BUN/Crea Ratio 14.8 Ratio 7-25 Lipid Studies 05/09/2011 [facility] Triglycerides 58 mg/dL 0-[address] [address] [phone] Cholesterol 154 mg/dL 120-200 HDL Cholesterol 51.0 mg/dL 40-60 VLDL (Calc.) 12 mg/dL <31 Cholesterol/HDL 3.02 Ratio <5.00 LDL (Calc.) 91 mg/dL 0-99 53 Hepatic Panel A 05/09/2011 [facility] Albumin 3.70 g/dL 3.3 -4.[address] [address] [phone] Sgot (Ast) 18.0 IU/L 5-40 Alk Phosphatase 84.0 IU/L 38-126 SGPT (Alt) 22.0 IU/L 7-56 Total Bilirubin 0.77 mg/dL 0.2-1.3 Direct Bili 0.30 mg/dL 0.00-0.4 Total Protein 6.56 g/dL 6.3-8.2 Globulin (Calc) 2.86 g/dL 2.3-3.5 A/G Ratio (Calc) 1.3 Ratio 1.1-2.2 Laboratory test finding 05/09/2011 [facility] %A1c 7.4 % High 4.2-5.[address] [address] [phone] eGFR (Male) 103 >59 54 Laboratory test 01/03/2011 [facility] %A1c 7.8 % High 4.2- 5.8 finding [address] [address] [phone] Lipid Studies 01/03/2011 [facility] Triglycerides 52 mg/dL 0-[address] [address] [phone] Cholesterol 137 mg/dL 120-200 HDL Cholesterol 48.0 mg/dL 40-60 VLDL (Calc.) 10 mg/dL <31 Cholesterol/HDL 2.85 Ratio <5.00 LDL (Calc.) 79 mg/dL 0-99 55 Basic Metabolic 01/03/2011 [facility] Glucose 167.7 mg/dL High 65-[address] [address] [phone] BUN 13.4 mg/dL 7-21 Co2 22.6 mEq/L 22-30 Sodium 136 mEq/L Low 137-145 Potassium 3.8 mEq/L 3.6-5.0 Chloride 100 mEq/L 98-107 Calcium 9.3 mg/dL 9-10.5 Creatinine 1.00 mg/dL 0.52-1.25 Anion Gap (Calc) 13.4 7-16 BUN/Crea Ratio 13.4 Ratio 7-25 Hepatic Panel A 01/03/2011 [facility] Albumin 3.88 g/dL 3.3 -4.[address] [address] [phone] Sgot (Ast) 16.0 IU/L 5-40 Alk Phosphatase 83.0 IU/L 38-126 SGPT (Alt) 12.0 IU/L 7-56 Total Bilirubin 0.61 mg/dL 0.2-1.3 Direct Bili 0.26 mg/dL 0.00-0.4 Total Protein 6.80 g/dL 6.3-8.2 Globulin (Calc) 2.92 g/dL 2.3-3.5 A/G Ratio (Calc) 1.3 Ratio 1.1-2.2 Laboratory test 01/03/2011 [facility] eGFR (Male) 89 >59 56 finding [address] [address] [phone] Lipid Studies 09/09/2010 [facility] Triglycerides 45 mg/dL 0-[address] [address] [phone] Cholesterol 143 mg/dL 120-200 HDL Cholesterol 43.0 mg/dL 40-60 VLDL (Calc.) 9 mg/dL <31 Cholesterol/HDL 3.33 Ratio <5.00 LDL (Calc.) 91 mg/dL 0-99 57 Hepatic Panel A 09/09/2010 [facility] Albumin 4.03 g/dL 3.3 -4.[address] [address] [phone] Sgot (Ast) 17.0 IU/L 5-40 Alk Phosphatase 83.0 IU/L 38-126 SGPT (Alt) 19.0 IU/L 7-56 Total Bilirubin 0.80 mg/dL 0.2-1.3 Direct Bili 0.35 mg/dL 0.00-0.4 Total Protein 7.12 g/dL 6.3-8.2 Globulin (Calc) 3.09 g/dL 2.3-3.5 A/G Ratio (Calc) 1.3 Ratio 1.1-2.2 Basic Metabolic 09/09/2010 [facility] Glucose 252.8 mg/dL High 65-[address] [address] [phone] BUN 15.3 mg/dL 7-21 Co2 25.0 mEq/L 22-30 Sodium 135 mEq/L Low 137-145 Potassium 4.5 mEq/L 3.6-5.0 Chloride 99 mEq/L 98-107 Calcium 9.9 mg/dL 9-10.5 Creatinine 1.01 mg/dL 0.52-1.25 Anion Gap (Calc) 11.0 7-16 BUN/Crea Ratio 15.1 Ratio 7-25 Laboratory test finding 09/09/2010 [facility] %A1c 8.0 % High 4.2-5.[address] [address] [phone] eGFR (Male) 88 >59 58 Lipid Studies 05/02/2010 [facility] Triglycerides 39 mg/dL 0-[address] [phone] Cholesterol 138 mg/dL 120-200 HDL Cholesterol 45.0 mg/dL 40-60 VLDL (Calc.) 8 mg/dL <31 Cholesterol/HDL 3.07 Ratio <5.00 Direct LDL 78 0-99 LDL (Calc.) 85 mg/dL 0-99 Comp. Metabolic 05/02/2010 [facility] Glucose 167.3 mg/dL High 65-[address] [address] [phone] BUN 12.8 mg/dL 7-21 Co2 27.4 mEq/L 22-30 Sodium 140 mEq/L 137-145 Potassium 4.2 mEq/L 3.6-5.0 Chloride 101 mEq/L 98-107 Calcium 9.3 mg/dL 9-10.5 Creatinine 0.98 mg/dL 0.52-1.25 Total Protein 7.11 g/dL 6.3-8.2 Albumin 3.84 g/dL 3.3-4.50 Sgot (Ast) 16.0 IU/L 5-40 Alk Phosphatase 82.0 IU/L 38-126 Total Bilirubin 0.65 mg/dL 0.2-1.3 SGPT (Alt) 16.0 IU/L 7-56 Anion Gap (Calc) 11.6 7-16 BUN/Crea Ratio 13.1 Ratio 7-25 Globulin (Calc) 3.27 g/dL 2.3-3.5 A/G Ratio (Calc) 1.2 Ratio 1.1-2.2 Laboratory test finding 05/02/2010 [facility] %A1c 7.3 % High 4.2-5.[address] [address] [phone] eGFR (Male) 92 >59 59 Laboratory test 12/27/2009 [facility] %A1c 7.5 % High 4.2- 5.8 finding [address] [address] [phone] Basic Metabolic 12/27/2009 [facility] Glucose 266.8 mg/dL High 65-[address] [address] [phone] BUN 17.6 mg/dL 7-21 Co2 25.9 mEq/L 22-30 Sodium 138 mEq/L 137-145 Potassium 4.4 mEq/L 3.6-5.0 Chloride 102 mEq/L 98-107 Calcium 9.7 mg/dL 9-10.5 Creatinine 1.01 mg/dL 0.52-1.25 Anion Gap (Calc) 10.1 7-16 BUN/Crea Ratio 17.4 Ratio 7-25 Lipid Studies 12/27/2009 [facility] Triglycerides 45 mg/dL 0-149 77 28 [address] [address] [phone] Cholesterol 148 mg/dL 120-200 HDL Cholesterol 49.0 mg/dL 40-60 VLDL (Calc.) 9 mg/dL <31 Cholesterol/HDL 3.02 Ratio <5.00 Direct LDL 83 0-99 LDL (Calc.) 90 mg/dL 0-99 Hepatic Panel A 12/27/2009 [facility] Albumin 3.95 g/dL 3.3 -4.[address] [address] [phone] Sgot (Ast) 18.0 IU/L 5-40 Alk Phosphatase 86.0 IU/L 38-126 SGPT (Alt) 18.0 IU/L 7-56 Total Bilirubin 0.59 mg/dL 0.2-1.3 Direct Bili 0.30 mg/dL 0.00-0.4 Total Protein 7.00 g/dL 6.3-8.2 Globulin (Calc) 3.05 g/dL 2.3-3.5 A/G Ratio (Calc) 1.3 Ratio 1.1-2.2 Laboratory test 12/27/2009 [facility] eGFR (Male) 89 60 finding [address] [address] [phone] Laboratory test 08/31/2009 [facility] %A1c 7.6 % High 4.2- 5.8 finding [address] [address] [phone] Basic Metabolic 08/31/2009 [facility] Glucose 239.2 High 65- 110 77 [facility] 310 mg/dL [place], [place] [id number] [phone] BUN 12.0 mg/dL 7-21 Co2 26.7 mEq/L 22-30 Sodium 136 mEq/L Low 137-145 Potassium 4.2 mEq/L 3.6-5.0 Chloride 100 mEq/L 98-107 Calcium 9.3 mg/dL 9-10.5 Creatinine 1.00 mg/dL 0.52-1.25 Anion Gap (Calc) 9.3 7-16 BUN/Crea Ratio 12.0 Ratio 7-25 Lipid Studies 08/31/2009 [facility] Triglycerides 53 mg/dL 0-[address] [address] [phone] Cholesterol 150 mg/dL 120-200 HDL Cholesterol 50.0 mg/dL 40-60 VLDL (Calc.) 11 mg/dL <31 Cholesterol/HDL 3.00 Ratio <5.00 Direct LDL 79 0-99 LDL (Calc.) 89 mg/dL 0-99 Hepatic Panel A 08/31/2009 [facility] Albumin 4.07 g/dL 3.3 -4.[address] [address] [phone] Sgot (Ast) 15.0 IU/L 5-40 Alk Phosphatase 81.0 IU/L 38-126 SGPT (Alt) 13.0 IU/L 7-56 Total Bilirubin 0.55 mg/dL 0.2-1.3 Direct Bili 0.25 mg/dL 0.00-0.4 Total Protein 7.13 g/dL 6.3-8.2 Globulin (Calc) 3.06 g/dL 2.3-3.5 A/G Ratio (Calc) 1.3 Ratio 1.1-2.2 Laboratory test 08/31/2009 [facility] eGFR (Male) 90 61 finding [address] [address] [phone] Basic Metabolic 04/28/2009 [facility] Glucose 117.0 High 65- 110 77 [facility] 310 mg/[place] [address] [phone] BUN 13.0 mg/dL 7-21 Co2 31.0 mEq/L High 22-30 Sodium 138 mEq/L 137-145 Potassium 4.3 mEq/L 3.6-5.0 Chloride 100 mEq/L 98-107 Calcium 10.1 mg/dL 9-10.5 Creatinine 0.90 mg/dL 0.52-1.25 Anion Gap (Calc) 7.0 7-16 BUN/Crea Ratio 14.4 Ratio 7-25 Laboratory test 04/28/2009 [facility] %A1c 6.9 % High 4.2- 5.8 finding [address] [phone] Laboratory test 12/29/2008 [facility] %A1c 7.8 % High 4.2- 5.8 finding [address] [address] [phone] Comp. Metabolic 12/29/2008 [facility] Glucose 116.0 mg/dL High 65-[address] [address] [phone] BUN 13.0 mg/dL 7-21 Co2 29.0 mEq/L 22-30 Sodium 139 mEq/L 137-145 Potassium 4.3 mEq/L 3.6-5.0 Chloride 101 mEq/L 98-107 Calcium 9.5 mg/dL 9-10.5 Creatinine 0.90 mg/dL 0.52-1.25 Total Protein 7.10 g/dL 6.3-8.2 Albumin 4.10 g/dL 3.3-4.50 Sgot (Ast) 21.0 IU/L 5-40 Alk Phosphatase 87.0 IU/L 38-126 Total Bilirubin 0.20 mg/dL 0.2-1.3 SGPT (Alt) 16.0 IU/L 7-56 Anion Gap (Calc) 9.0 7-16 BUN/Crea Ratio 14.4 Ratio 7-25 Globulin (Calc) 3.00 g/dL 2.3-3.5 A/G Ratio (Calc) 1.4 Ratio 1.1-2.2 Lipid Studies 12/29/2008 [facility] Triglycerides 74 mg/dL 35-[address] [address] [phone] Cholesterol 162 mg/dL 120-200 HDL Cholesterol 45.0 mg/dL 40-60 LDL (Calc.) 102 mg/dL High 0-99 VLDL (Calc.) 15 mg/dL <31 Cholesterol/HDL 3.60 Ratio <5.00 Basic Metabolic 08/26/2008 [facility] Glucose 212.0 mg/dL High 65-[address] [phone] BUN 16.0 mg/dL 7- Co2 28.0 mEq/L 22-30 Sodium 138 mEq/L 137-145 Potassium 4.9 mEq/L 3.6-5.0 Chloride 98 mEq/L 98-107 Calcium 9.4 mg/dL 9-10.5 Creatinine 0.90 mg/dL 0.52-1.25 Anion Gap (Calc) 12.0 - BUN/Crea Ratio 17.8 Ratio 02-27 Laboratory test 08/26/2008 [facility] %A1c 7.5 % High 4.2- 5.8 finding [address] [phone] Laboratory test 04/27/2008 [facility] %A1c 6.8 % High 4.2- 5.8 finding [address] [phone] Basic Metabolic 04/27/2008 [facility] Glucose 184.0 mg/dL High 65-[address] [phone] BUN 13.0 mg/dL 7- Co2 28.0 mEq/L 22-30 Sodium 138 mEq/L 137-145 Potassium 4.2 mEq/L 3.6-5.0 Chloride 98 mEq/L 98-107 Calcium 9.3 mg/dL 9-10.5 Creatinine 1.00 mg/dL 0.52-1.25 Anion Gap (Calc) 12.0 02-18 BUN/Crea Ratio 13.0 Ratio 02-27 Laboratory test 12/24/2007 [facility] %A1c 6.8 % High 4.2- 5.8 finding [address] [phone] Basic Metabolic 12/24/2007 [facility] Glucose 176.0 mg/dL High 65-[address] [phone] BUN 11.0 mg/dL 7- Co2 27.0 mEq/L 22-30 Sodium 137 mEq/L 137-145 Potassium 4.7 mEq/L 3.6-5.0 Chloride 100 mEq/L 98-107 Calcium 9.6 mg/dL 9-10.5 Creatinine 0.90 mg/dL 0.52-1.25 Anion Gap (Calc) 10.0 7-16 BUN/Crea Ratio 12.2 Ratio 7-25 Lipid Studies 12/24/2007 [facility] Triglycerides 41 mg/dL 35-160 77 [facility] 310 [place] [address] [phone] Cholesterol 147 mg/dL 120-200 HDL Cholesterol 52.0 mg/dL 40-60 LDL (Calc.) 87 mg/dL 0-99 VLDL (Calc.) 8 mg/dL <31 Cholesterol/HDL 2.83 Ratio <5.00 Laboratory test 08/13/2007 [facility] Glycohgb (A1c) 7.3 % High 4.4-6.4 finding [address] [phone] Comp. Metabolic 08/13/2007 [facility] Glucose 144.0 High 65- 110 77 [facility] 310 mg/dL [place], [place] [phone] BUN 16.0 mg/dL 7-21 Creatinine 1.00 mg/dL 0.7-1.5 Co2 28.0 mEq/L 22-30 Sodium 137 mEq/L 137-145 Potassium 4.1 mEq/L 3.6-5.0 Chloride 100 mEq/L 98-107 Calcium 9.3 mg/dL 9-10.5 Total Protein 6.90 g/dL 6.3-8.2 Albumin 4.30 g/dL 3.3-4.50 Sgot (Ast) 26.0 IU/L 5-40 Alk Phosphatase 88.0 IU/L 38-126 Total Bilirubin 0.60 mg/dL 0.2-1.3 SGPT (Alt) 18.0 IU/L 7-56 Anion Gap (Calc) 9.0 7-16 BUN/Crea Ratio 16.0 Ratio 7-25 Globulin (Calc) 2.60 g/dL 2.3-3.5 A/G Ratio (Calc) 1.7 Ratio 1.1-2.2 Laboratory test 04/17/2007 [facility] Glycohgb (A1c) 7.2 % High 4.4-6.4 finding [address] [phone] Basic Metabolic 04/17/2007 [facility] Glucose 148.0 High 65- 110 77 [facility] 310 mg/dL [place], [place] [id number] [phone] BUN 11.0 mg/dL 7-21 Creatinine 1.10 mg/dL 0.7-1.5 Co2 26.0 mEq/L 22-30 Sodium 139 mEq/L 137-145 Potassium 4.4 mEq/L 3.6-5.0 Chloride 102 mEq/L 98-107 Calcium 9.7 mg/dL 9-10.5 Anion Gap (Calc) 11.0 7-16 BUN/Crea Ratio 10.0 Ratio 7-25 Comp. Metabolic 12/19/2006 [facility] Glucose 173.0 mg/dL High 65-[address] 7782549 [phone] BUN 12.0 mg/dL 7-21 Creatinine 1.10 mg/dL 0.7-1.5 Co2 24.0 mEq/L 22-30 Sodium 135 mEq/L Low 137-145 Potassium 4.3 mEq/L 3.6-5.0 Chloride 98 mEq/L 98-107 Calcium 9.6 mg/dL 9-10.5 Total Protein 7.30 g/dL 6.3-8.2 Albumin 4.20 g/dL 3.3-4.50 Sgot (Ast) 23.0 IU/L 5-40 Alk Phosphatase 94.0 IU/L 38-126 Total Bilirubin 0.70 mg/dL 0.2-1.3 SGPT (Alt) 28.0 IU/L 7-56 Anion Gap (Calc) 13.0 7-16 BUN/Crea Ratio 10.9 Ratio 7-25 Globulin (Calc) 3.10 g/dL 2.3-3.5 A/G Ratio (Calc) 1.4 Ratio 1.1-2.2 Lipid Studies 12/19/2006 [facility] Triglycerides 43 mg/dL 35-[address] [phone] Cholesterol 143 mg/dL 120-200 HDL Cholesterol 46.0 mg/dL 40-60 LDL (Calc.) 88 mg/dL 0-99 VLDL (Calc.) 9 mg/dL <31 Cholesterol/HDL 3.11 Ratio <5.00 Laboratory test 12/19/2006 [facility] Glycohgb 6.8 % High 4.4-6.4 finding 77 [place] [address] (A1c) [place] [address] [phone] Laboratory test 08/22/2006 [facility] Throat SPECIMEN 62 finding 17 [facility] Culture DESCRIP <[place] [address] NOTE> [phone] Basic Metabolic 07/11/2006 [facility] Glucose 234.0 mg/dL High 65-[address] 4590754 [phone] BUN 13.0 mg/dL 7-21 Creatinine 1.00 mg/dL 0.7-1.5 Co2 30.0 mEq/L 22-30 Sodium 138 mEq/L 137-145 Potassium 4.6 mEq/L 3.6-5.0 Chloride 97 mEq/L Low 98-107 Calcium 9.6 mg/dL 9-10.5 Anion Gap (Calc) 11.0 7-16 BUN/Crea Ratio 13.0 Ratio 7-25 Laboratory test 07/11/2006 [facility] Glycohgb (A1c) 7.1 % High 4.4-6.4 finding [address] [address] [phone] Lipid Studies 07/11/2006 [facility] Triglycerides 48 mg/dL 35-[address] 7618016 [phone] Cholesterol 173 mg/dL 120-200 HDL Cholesterol 55.0 mg/dL 40-60 LDL (Calc.) 108 mg/dL High 0-99 VLDL (Calc.) 10 mg/dL <31 Cholesterol/HDL 3.15 Ratio <5.00 Laboratory test 03/08/2006 [facility] Ferritin 172 ng/mL ( 28-397) 63 finding 17 [place], [place] [id number] [phone] Iron Panel 03/08/2006 [facility] Iron 89 g/dL (35-150) 17 [place], [place] 5575956 [phone] Tibc 291 g/dL (250-450) Iron Saturation 30.6 % (20-55) 64 Laboratory test 03/08/2006 [facility] Glycohgb (A1c) 7.0 % High 4.4-6.4 finding [address] [address] [phone] Lipid Studies 03/08/2006 [facility] Triglycerides 61 mg/dL 35-[address] 4712953 [phone] Cholesterol 160 mg/dL 54-201 HDL Cholesterol 50.0 mg/dL 29-86 LDL (Calc.) 98 mg/dL 0-160 VLDL (Calc.) 12 mg/dL Cholesterol/HDL 3.20 Ratio <5.00 CBC 03/08/2006 [facility] WBC 7.3 10\\S\\3/uL 4.8-10.[address] [address] [phone] RBC 4.91 10\\S\\6/uL 4.2-6.1 HGB 15.7 g/dL 12.0-18.0 HCT 43.7 % 37-52 MCV 89.0 fL 80.0-99.0 MCH 32.1 pg High 27.0-31.0 MCHC 36.0 g/dL 33.0-37.0 RDW 12.00 % 11.5-14.5 MPV 8.0 fL 7.4-10.4 Platelets 298 10\\S\\3/uL 130-400 Basic Metabolic 03/08/2006 [facility] Glucose 183.0 mg/dL High 65-[address] [address] [phone] BUN 13.0 mg/dL 7-21 Creatinine 1.20 mg/dL 0.7-1.5 Co2 28.0 mEq/L 22-30 Sodium 137 mEq/L 137-145 Potassium 4.6 mEq/L 3.6-5.0 Chloride 101 mEq/L 98-107 Calcium 9.3 mg/dL 9-10.5 Anion Gap (Calc) 8.0 7-16 BUN/Crea Ratio 10.8 Ratio 7-25 Lipid Studies 10/31/2005 [facility] Triglycerides 59 mg/dL 35-[address] [address] [phone] Cholesterol 158 mg/dL 54-201 HDL Cholesterol 54.0 mg/dL 29-86 LDL (Calc.) 92 mg/dL 0-160 VLDL (Calc.) 12 mg/dL Cholesterol/HDL 2.93 Ratio <5.00 Laboratory test 10/31/2005 [facility] Glycohgb (A1c) 7.3 % High 4.4-6.4 finding [address] [phone] Basic Metabolic 10/31/2005 [facility] Glucose 256.0 High 65- 110 77 [facility] 310 mg/dL [place], [place] 5091122 [phone] BUN 12.0 mg/dL 7-21 Creatinine 1.10 mg/dL 0.7-1.5 Co2 29.0 mEq/L 22-30 Sodium 137 mEq/L 137-145 Potassium 4.3 mEq/L 3.6-5.0 Chloride 97 mEq/L Low 98-107 Calcium 9.0 mg/dL 9-10.5 Anion Gap (Calc) 11.0 7-16 BUN/Crea Ratio 10.9 Ratio 7-25 Lipid Studies 07/12/2005 [facility] Triglycerides 85 mg/dL 35-[address] [place] [address] [phone] Cholesterol 161 mg/dL 54-201 HDL Cholesterol 48.0 mg/dL 29-86 LDL (Calc.) 96 mg/dL 0-160 VLDL (Calc.) 17 mg/dL Cholesterol/HDL 3.35 Ratio <5.00 Laboratory test 07/12/2005 [facility] Glycohgb (A1c) 6.6 % High 4.4-6.4 finding [address] 0604039 [phone] Comp. Metabolic 07/12/2005 [facility] Glucose 191.0 High 65- [address] [place] [address] 310 mg/dL [place], [place] 4773027 [phone] BUN 11.0 mg/dL 7-21 Creatinine 1.00 mg/dL 0.7-1.5 Co2 28.0 mEq/L 22-30 Sodium 140 mEq/L 137-145 Potassium 4.3 mEq/L 3.6-5.0 Chloride 102 mEq/L 98-107 Calcium 9.2 mg/dL 9-10.5 Total Protein 7.10 g/dL 6.3-8.2 Albumin 4.00 g/dL 3.3-4.50 Sgot (Ast) 23.0 IU/L 5-40 Alk Phosphatase 80.0 IU/L 38-126 Total Bilirubin 0.90 mg/dL 0.2-1.3 SGPT (Alt) 34.0 IU/L 7-56 Anion Gap (Calc) 10.0 7-16 BUN/Crea Ratio 11.0 Ratio 7-25 Globulin (Calc) 3.10 g/dL 2.3-3.5 A/G Ratio (Calc) 1.3 Ratio 1.1-2.2 Laboratory test 03/16/2005 [facility] Glycohgb (A1c) 6.5 % High 4.4-6.4 finding [address] [address] [phone] Basic Metabolic 03/16/2005 [facility] Glucose 177.0 High 65- 110 77 [facility] 310 mg/[place] [address] [phone] BUN 13.0 mg/dL 7-21 Creatinine 1.00 mg/dL 0.7-1.5 Co2 30.0 mEq/L 22-30 Sodium 141 mEq/L 137-145 Potassium 4.2 mEq/L 3.6-5.0 Chloride 99 mEq/L 98-107 Calcium 9.3 mg/dL 9-10.5 Anion Gap (Calc) 12.0 7-16 BUN/Crea Ratio 13.0 Ratio 7-25 Lipid Studies 03/16/2005 [facility] Triglycerides 75 mg/dL 35-[address] [place] [address] [phone] Cholesterol 168 mg/dL 54-201 HDL Cholesterol 59.0 mg/dL 29-86 LDL (Calc.) 94 mg/dL 0-160 VLDL (Calc.) 15 mg/dL Cholesterol/HDL 2.85 Ratio <5.00 1 FASTING 2 LDL(Calc.) invalid if triglycerides >400. 3 For Patients, multiply result by 1.159 Units expressed as mL/min/1.73m^2 Normal Range is > or=to 60. 4 FASTING 5 LDL(Calc.) invalid if triglycerides >400. 6 For Patients, multiply result by 1.159 Units expressed as mL/min/1.73m^2 Normal Range is > or=to 60. 7 For Patients, multiply result by 1.159 Units expressed as mL/min/1.73m^2 Normal Range is > or=to 60. 8 LDL(Calc.) invalid if triglycerides >400. 9 LDL(Calc.) invalid if triglycerides >400. 10 For Patients, multiply result by 1.159 Units expressed as mL/min/1.73m^2 Normal Range is > or=to 60. 11 For Patients, multiply result by 1.159 Units expressed as mL/min/1.73m^2 Normal Range is > or=to 60. 12 LDL(Calc.) invalid if triglycerides >400. 13 FASTING 12 HOUR 14 LDL(Calc.) invalid if triglycerides >400. 15 Units expressed as mL/min/1.73m^2 Normal Range is > or=to 60. 16 Units expressed as mL/min/1.73m^2 Normal Range is > or=to 60. 17 FASTING 12 HOUR 18 LDL(Calc.) invalid if triglycerides >400. 19 FASTING 12 HOUR 20 LDL(Calc.) invalid if triglycerides >400. 21 Units expressed as mL/min/1.73m^2 22 FASTING 12 HOUR 23 LDL(Calc.) invalid if triglycerides >400. 24 Units expressed as mL/min/1.73m^2 25 Units expressed as mL/min/1.73m^2 26 LDL(Calc.) invalid if triglycerides >400. 27 FASTING 12 HOUR 28 LDL(Calc.) invalid if triglycerides >400. 29 Units expressed as mL/min/1.73m^2 30 FASTING 12 HOUR 31 FASTING 12 HOUR 32 LDL(Calc.) invalid if triglycerides >400. 33 Units expressed as mL/min/1.73m^2 34 Pathogens were not isolated 35 FASTING 12 HOUR 36 LDL(Calc.) invalid if triglycerides >400. 37 Units expressed as mL/min/1.73m^2 38 FASTING 39 LDL(Calc.) invalid if triglycerides >400. 40 Units expressed as mL/min/1.73m^2 41 LDL(Calc.) invalid if triglycerides >400. 42 Units expressed as mL/min/1.73m^2 43 LDL(Calc.) invalid if triglycerides >400. 44 Units expressed as mL/min/1.73m^2 45 LDL(Calc.) invalid if triglycerides >400. 46 Units expressed as mL/min/1.73m^2 47 LDL(Calc.) invalid if triglycerides >400. 48 Units expressed as mL/min/1.73m^2 49 LDL(Calc.) invalid if triglycerides >400. 50 Units expressed as mL/min/1.73m^2 51 LDL(Calc.) invalid if triglycerides >400. 52 Units expressed as mL/min/1.73m^2 53 LDL(Calc.) invalid if triglycerides >400. 54 Units expressed as mL/min/1.73m^2 55 LDL(Calc.) invalid if triglycerides >400. 56 Units expressed as mL/min/1.73m^2 57 LDL(Calc.) invalid if triglycerides >400. 58 Units expressed as mL/min/1.73m^2 59 Units expressed as mL/min/1.73m^2 60 Units expressed as mL/min/1.73m^2 61 Units expressed as mL/min/1.73m^2 62 SPECIMEN DESCRIPTION THROAT SPECIAL REQUESTS NONE CULTURE RESULTS RARE BETA STREPTOCOCCI GROUP A Testing performed by [facility], [address] [place] [address] REPORT STATUS FINAL 08/24/2006 63 Testing performed by [facility], [address] [place] [address] 64 Testing performed by [address] [address] Procedures Description No Information Available Encounters Type Date Location Provider Dx Diagnosis Office Visit 02/18/2018 Main Office Kevin Vaughn, E10.9 Type 1 diabetes 2:15p M.D. mellitus without complications I10 Essential (primary) hypertension E78.5 Hyperlipidemia, unspecified M79.641 Pain in right hand Z68.35 Body mass index (BMI) 35.0-35.9, adult Office Visit 09/20/2017 3:30p Main Office Charli Cummins, Z00.00 Encntr for general M.D. adult medical exam w/o abnormal findings E10.9 Type 1 diabetes mellitus without complications E78.5 Hyperlipidemia, unspecified I10 Essential (primary) hypertension F41.9 Anxiety disorder, unspecified E66.09 Other obesity due to excess calories N39.0 Urinary tract infection, site not specified Office Visit 07/17/2017 10:40a Main Office Angeles Stanley, J01.10 Acute frontal [employer] sinusitis, unspecified M25.511 Pain in right shoulder Office Visit 06/01/2017 4:00p Main Office Charli Cummins, E10.9 Type 1 diabetes M.D. mellitus without complications E78.5 Hyperlipidemia, unspecified I10 Essential (primary) hypertension F41.9 Anxiety disorder, unspecified E66.09 Other obesity due to excess calories Office Visit 01/11/2017 2:45p Main Office Charli Cummins, E10.9 Type 1 diabetes M.D. mellitus without complications I10 Essential (primary) hypertension E78.5 Hyperlipidemia, unspecified F41.9 Anxiety disorder, unspecified E66.09 Other obesity due to excess calories Office Visit 08/25/2016 4:00p Main Office Charli Cummins, E10.9 Type 1 diabetes M.D. mellitus without complications I10 Essential (primary) hypertension E78.5 Hyperlipidemia, unspecified F41.9 Anxiety disorder, unspecified E66.09 Other obesity due to excess calories Z68.33 Body mass index (BMI) 33.0-33.9, adult Z00.00 Encntr for general adult medical exam w/o abnormal findings Office Visit 04/21/2016 4:00p Main Office Charli Cummins, E10.9 Type 1 diabetes M.D. mellitus without complications I10 Essential (primary) hypertension E78.5 Hyperlipidemia, unspecified E66.09 Other obesity due to excess calories Office Visit 12/17/2015 4:00p Main Office Charli Martinez E10.65 Type 1 diabetes White, M.D. mellitus with hyperglycemia I10 Essential (primary) hypertension E78.5 Hyperlipidemia, unspecified E66.09 Other obesity due to excess calories Office Visit 08/13/2015 3:30p Main Office Charli Cummins, E10.9 Type 1 diabetes M.D. mellitus without complications I10 Essential (primary) hypertension E78.5 Hyperlipidemia, unspecified E66.09 Other obesity due to excess calories Z00.00 Encntr for general adult medical exam w/o abnormal findings Office Visit 04/07/2015 3:15p Main Office Charli Cummins, 250.03 Diabetes Mellitus M.D. W/O Compl Type I Juvenile Uncontrolled 401.1 Hypertension Benign 272.4 Hyperlipidemia Other Unspec 278.00 Obesity Unspec Office Visit 11/05/2014 4:00p Main Office Charli Cummins, 250.03 Diabetes Mellitus M.D. W/O Compl Type I Juvenile Uncontrolled 401.1 Hypertension Benign 272.4 Hyperlipidemia Other Unspec 278.00 Obesity Unspec Office Visit 10/20/2014 3:15p Main Office Charli Cummins, 726.19 Shoulder Disorders M.D. Other Spec Office Visit 07/09/2014 11:15a Main Office Charli Cummins, 386.11 Vertigo Benign M.D. Paroxysmal Position Office Visit 06/03/2014 4:15p Main Office Charli Cummins, 250.03 Diabetes Mellitus M.D. W/O Compl Type I Juvenile Uncontrolled 401.1 Hypertension Benign 272.4 Hyperlipidemia Other Unspec 278.02 Overweight V04.81 Need For Prophylactic Vaccination & Inoculation/Influenza Office Visit 02/19/2014 4:45p Main Office Charli Cummins, 462 Pharyngitis Acute M.D. Office Visit 01/30/2014 3:30p Main Office Charli Cummins, 250.03 Diabetes Mellitus M.D. W/O Compl Type I Juvenile Uncontrolled 401.1 Hypertension Benign 278.02 Overweight 272.4 Hyperlipidemia Other Unspec V70.0 Examination General Medical Routine AT Health Care Facility Office Visit 10/03/2013 4:00p Main Office Charli Cummins, 250.03 Diabetes Mellitus M.D. W/O Compl Type I Juvenile Uncontrolled 401.1 Hypertension Benign 272.4 Hyperlipidemia Other Unspec 278.02 Overweight Office Visit 05/30/2013 2:45p Main Office Charli Cummins, 250.03 Diabetes Mellitus M.D. W/O Compl Type I Juvenile Uncontrolled 401.1 Hypertension Benign 272.4 Hyperlipidemia Other Unspec 278.02 Overweight V04.81 Need For Prophylactic Vaccination & Inoculation/Influenza Office Visit 01/17/2013 4:00p Main Office Charli Cummins, 401.1 Hypertension Benign M.D. 250.03 Diabetes Mellitus W/O Compl Type I Juvenile Uncontrolled 272.4 Hyperlipidemia Other Unspec 278.02 Overweight Office Visit 09/20/2012 4:00p Main Office Charli Cummins, 250.03 Diabetes Mellitus M.D. W/O Compl Type I Juvenile Uncontrolled 272.4 Hyperlipidemia Other Unspec 401.1 Hypertension Benign 278.02 Overweight 719.47 Pain Joint Ankle & Foot V70.0 Examination General Medical Routine AT Health Care Facility Office Visit 05/24/2012 4:15p Main Office Charli Cummins, 250.03 Diabetes Mellitus M.D. W/O Compl Type I Juvenile Uncontrolled 272.4 Hyperlipidemia Other Unspec 401.1 Hypertension Benign 278.02 Overweight V04.81 Need For Prophylactic Vaccination & Inoculation/Influenza Office Visit 01/29/2012 4:00p Main Office Charli Cummins, 250.03 Diabetes Mellitus M.D. W/O Compl Type I Juvenile Uncontrolled 272.4 Hyperlipidemia Other Unspec 401.1 Hypertension Benign 278.02 Overweight Office Visit 09/25/2011 3:20p Main Office Carlotta Aceves, 461.8 Sinusitis Acute R.N.,F.N.P. Other Office Visit 09/19/2011 4:00p Main Office Charli Cummins, 250.03 Diabetes Mellitus M.D. W/O Compl Type I Juvenile Uncontrolled 272.4 Hyperlipidemia Other Unspec 401.1 Hypertension Benign 278.00 Obesity Unspec Office Visit 05/19/2011 4:00p Main Office Charli Cummins, 401.1 Hypertension Benign M.D. 272.4 Hyperlipidemia Other Unspec 250.03 Diabetes Mellitus W/O Compl Type I Juvenile Uncontrolled V04.81 Need For Prophylactic Vaccination & Inoculation/Influenza V70.0 Examination General Medical Routine AT Health Care Facility Office Visit 01/10/2011 4:30p Main Office Charli Cummins, 250.03 Diabetes Mellitus M.D. W/O Compl Type I Juvenile Uncontrolled 272.4 Hyperlipidemia Other Unspec 401.1 Hypertension Benign Office Visit 09/13/2010 4:30p Main Office Charli Cummins, 250.03 Diabetes Mellitus M.D. W/O Compl Type I Juvenile Uncontrolled 272.4 Hyperlipidemia Other Unspec 401.1 Hypertension Benign Office Visit 05/13/2010 3:00p Main Office Charli Cummins, 250.01 Diabetes Mellitus M.D. W/O Compl Type I Juvenile Controlled 272.4 Hyperlipidemia Other Unspec 401.1 Hypertension Benign V04.81 Need For Prophylactic Vaccination & Inoculation/Influenza Office Visit 01/04/2010 3:00p Main Office Charli Cummins, 250.01 Diabetes Mellitus M.D. W/O Compl Type I Juvenile Controlled 401.1 Hypertension Benign 272.4 Hyperlipidemia Other Unspec Office Visit 09/08/2009 3:00p Main Office Charli Cummins, 250.01 Diabetes Mellitus M.D. W/O Compl Type I Juvenile Controlled 401.1 Hypertension Benign V04.81 Need For Prophylactic Vaccination & Inoculation/Influenza Office Visit 05/06/2009 3:45p Main Office Charli Cummins, 250.01 Diabetes Mellitus M.D. W/O Compl Type I Juvenile Controlled 401.1 Hypertension Benign V04.81 Need For Prophylactic Vaccination & Inoculation/Influenza Office Visit 01/05/2009 3:45p Main Office Charli Cummins, 250.01 Diabetes Mellitus M.D. W/O Compl Type I Juvenile Controlled 401.1 Hypertension Benign Office Visit 09/01/2008 3:00p Main Office Charli Cummins, 250.01 Diabetes Mellitus M.D. W/O Compl Type I Juvenile Controlled 401.1 Hypertension Benign Office Visit 05/05/2008 3:00p Main Office Charli Cummins, 250.01 Diabetes Mellitus M.D. W/O Compl Type I Juvenile Controlled 401.1 Hypertension Benign V04.81 Need For Prophylactic Vaccination & Inoculation/Influenza Office Visit 01/01/2008 2:00p Main Office Charli Cummins, 250.01 Diabetes Mellitus M.D. W/O Compl Type I Juvenile Controlled 401.1 Hypertension Benign Office Visit 08/21/2007 4:00p Main Office Charli Cummins, 250.01 Diabetes Mellitus M.D. W/O Compl Type I Juvenile Controlled 401.1 Hypertension Benign Office Visit 04/24/2007 3:15p Main Office Charli Cummins, 250.01 Diabetes Mellitus M.D. W/O Compl Type I Juvenile Controlled 401.1 Hypertension Benign Office Visit 02/25/2007 2:40p Main Office Debora Almeida, 381.01 Otitis Media R.N.,F.N.P. Serous Acute Office Visit 12/26/2006 3:00p Main Office Charli Cummins, 250.01 Diabetes Mellitus M.D. W/O Compl Type I Juvenile Controlled 401.1 Hypertension Benign Office Visit 08/22/2006 1:30p Main Office Charli Cummins, 462 Pharyngitis Acute M.D. Office Visit 08/15/2006 9:00a Main Office Charli Cummins, 250.01 Diabetes Mellitus M.D. W/O Compl Type I Juvenile Controlled 401.1 Hypertension Benign Office Visit 03/14/2006 3:00p Main Office Charli Cummins, 250.01 Diabetes Mellitus M.D. W/O Compl Type I Juvenile Controlled 401.1 Hypertension Benign Office Visit 11/08/2005 3:00p Main Office Charli Cummnis, 250.01 Diabetes Mellitus M.D. W/O Compl Type I Juvenile Controlled 401.1 Hypertension Benign Office Visit 07/19/2005 3:00p Main Office Charli Cummins, 401.1 Hypertension Benign M.DSilvano 250.01 Diabetes Mellitus W/O Compl Type I Juvenile Controlled Office Visit 03/22/2005 3:00p Main Office Charli Cummins, 401.1 Hypertension Benign M.D. 250.01 Diabetes Mellitus W/O Compl Type I Juvenile Controlled Office Visit 12/21/2004 3:45p Main Office Charli Cummins, 401.1 Hypertension Benign M.D. 250.01 Diabetes Mellitus W/O Compl Type I Juvenile Controlled Office Visit 11/16/2004 4:20p Main Office Carlotta Aceves, 250.01 Diabetes Mellitus R.N.,F.N.P. W/O Compl Type I Juvenile Controlled 401.1 Hypertension Benign Plan of Treatment 06/17/2018 - Kevin Vaughn M.D.E10.9 Type 1 diabetes mellitus without complicationsNew Labs:%A1c, Scheduled: 10/23/18Follow up:4 [id number] Hyperlipidemia, unspecifiedNew Labs:Lipid Studies, Scheduled: 10/23/18Follow up: .I10 Essential (primary) hypertensionNew Labs:Comp. Metabolic, Scheduled: Z71.3 Dietary counseling and [id number] Body mass index (BMI) 35.0- 35.9, adultComments:Given current BMI, the patient is counseled on need for routine exercise and dietary changes
--- OUTSIDE RECORDS SUMMARY | 2018-07-03 10:48 | XMS REPORT | Continuity of Care Document ---
:1975 Author Organization [facility] Care Team Providers Name Role Phone JESSE ANN Admitting Physician JESSE ANN Attending Physician SURI WIGGINS Primary Care Physician Allergies and Intolerances No Known Allergies Medications RxNorm Medication Dose Route Instructions Start End Status Date Date 3 ML Insulin Lispro 0.11 subcutaneous subcutaneously Active 100 UNT/ML Pen unit/kg every morning Injector (administer within 15 minutes before breakfast or no later than immediately following the meal) 837515 Amoxicillin 875 MG / 1 tab oral orally every 12 Active Clavulanate 125 MG hours (take Oral Tablet with food or milk) 929859 Aspirin 325 MG Oral 325 mg oral orally every Active Tablet day Cyclobenzaprine Oral 10 mg oral orally 3 times Active per day (7 days) 106501 Escitalopram 10 MG 10 mg oral orally every Active Oral Tablet day 3656674 Fluticasone 1 spray Intranasal intranasally Active propionate 0.05 every day MG/ACTUAT Metered Dose Nasal [place] Humulin N 0.35 subcutaneous subcutaneously Active Subcutaneous unit/kg every morning (administer 30-60 minutes before breakfast) 754824 Hydrochlorothiazide 25 mg oral orally every Active 25 MG Oral Tablet day 19780309 Lisinopril 40 MG Oral 40 mg oral orally every Active Tablet day 386991 Regular Insulin, 2 unit subcutaneous subcutaneously Active Human once 406025 Simvastatin 20 MG 20 mg oral orally every Active Oral Tablet day 902336 Acetaminophen 325 MG 1 tab oral orally every 6 01/25/ Completed / Hydrocodone hours as 2017 Bitartrate 5 MG Oral needed. Tablet Problems Code Code System Problem Name Start Date End Date Status 52393355 SNOMED-CT Hypercholesterolemia U Active 80639067 SNOMED-CT Hypertensive disorder U Active 52888533 SNOMED-CT Diabetes mellitus U Active 73330546 SNOMED-CT Diabetes mellitus type 1 U Active 83928809 SNOMED-CT Anxiety U Active Procedures No data in the system Results No data in the system Social History Code Code System Social History Observation Description Dates Observed 667678243 SNOMED CT Current Smoking Status Never smoker UNK AdministrativeGender Sex Assigned At Unknown Vital Signs Code Code System Vitals Value Date 8310-5 LOINC Body Temperature 97.9 [degF] 06/07/2018 8865-8 LOINC Pulse Rate 96 {beats}/min 06/07/2018 9279-1 LOINC Respiratory Rate 16 /min 06/07/2018 72948-5 LOINC O2% BldC Oximetry 97 % 06/07/2018 8480-6 LOINC BP Systolic 125 mm[Hg] 06/07/2018 8462-4 LOINC BP Diastolic 86 mm[Hg] 06/07/2018 8302-2 LOINC Height 72 [in_i] 06/07/2018 47828-5 LOINC Weight 80 kg 06/07/2018 3140-1 LOINC Body surface area Derived from formula 2.02 m2 06/07/2018 96846-9 LOINC BMI (Body Mass Index) 24.1 kg/m2 06/07/2018 Goals Section No data in the system Health Concerns No data in the systemEncounter Diagnosis Date Code Code System Diagnosis Status S46.912A ICD10 STRN UNS MSC F TND SHLDR UA LA INIT Active Advance Directives *RHIO - CONSENT IS YES Directive Type Effective Date Exercise Science Instructor Notes Supporting Document Name Address Phone No Directive Type 01/28/2017 1:38:17 Not Specified Not Specified Not Specified None No specified PM PT STATES NO ADVANCE DIRECTIVES Directive Type Effective Date Exercise Science Instructor Notes Supporting Document Name Address Phone No Directive Type 01/25/2017 5:07:00 Not Specified Not Specified Not Specified None No specified PM Family History Patient has no knowledge of family history Functional Status Code Functional Condition Code System Date Status Independent adls SNOMED CT 06/07/2018 Active Appears well nourished/hydrated SNOMED CT 06/07/2018 Active Immunizations Vaccine Code Code System Vaccine Name Date Status 115 CVX tetanus toxoid, reduced diphtheria 01/28/2017 Completed toxoid, and acellular pertussis vaccine, adsorbed Medical Equipment No data in the system Mental Status Code Cognitive Condition Code System Date Status No acute distress SNOMED CT 06/07/2018 Active Oriented x [address] 06/07/[address] 06/07/2018 Active Assessment and Plan Assessments No data in the systemPlan Of Treatment No data in the systemPending Tests No data in the system Hospital Discharge Instructions No data in the system Reason for Visit Reason for Visit Back Pain
--- NOTE | 2018-07-03 11:31 | UC ---
Shoulder Pain HPI - HPI Summary HPI Summary: 42-year-old male presents with complaints of left shoulder pain. States he awoke this morning with discomfort in the left posterior shoulder that radiates to the base of his neck. Describes the pain as a constant "tight, pulling" sensation. Nonradiating. Worsens with movement. States he took one dose of naproxen this morning without relief. Denies injury, fever, chills, rash, chest pain, palpitations, shortness of breath, diaphoresis, abdominal pain, nausea, vomiting, weakness, numbness, or tingling of the extremity. - History of Current Complaint Chief Complaint: UCUpperExtremity Stated Complaint: LEFT SHOULDER/NECK PAIN Time Seen by Provider: 07/03/18 11:04 Hx Obtained From: Patient Pain Intensity: 5 - Allergies/Home Medications Allergies/Adverse Reactions: Allergies Allergy/AdvReac Type Severity Reaction Status Date / Time No Known Allergies Allergy Verified 07/03/18 10:31 PMH/Surg Hx/FS Hx/Imm Hx Previously Healthy: Yes Endocrine History: Diabetes, Dyslipidemia Cardiovascular History: Hypertension Psychological History: Depression - Surgical History Surgical History: None - Family History Known Family History: Positive: Cardiac Disease, Hypertension - Social History Occupation: Employed Full-time Lives: With Family Alcohol Use: None Substance Use Type: None Smoking Status (MU): Never Smoked Tobacco Review of Systems All Other Systems Reviewed And Are Negative: Yes Constitutional: Negative: Fever, Chills Skin: Negative: Rash Respiratory: Negative: Shortness Of Breath, Cough Cardiovascular: Negative: Palpitations, Chest Pain Gastrointestinal: Negative: Abdominal Pain, Vomiting, Nausea Motor: Negative: Weakness Neurovascular: Negative: Decreased Sensation Musculoskeletal: Positive: Other: - See HPI Neurological: Negative: Weakness, Paresthesia, Numbness Is Patient Immunocompromised?: No Physical Exam - Summary Physical Exam Summary: GENERAL APPEARANCE: Well developed, well nourished, alert and cooperative, and appears to be in no acute distress. CARDIAC: Normal S1 and S2. No S3, S4 or murmurs. Rhythm is regular. There is no peripheral edema, cyanosis or pallor. Extremities are warm and well perfused. Capillary refill is less than 2 seconds. LUNGS: Clear to auscultation and percussion without rales, rhonchi, wheezing or diminished breath sounds. ABDOMEN: Positive bowel sounds. Soft, nondistended, nontender. No guarding or rebound. No masses or hepatosplenomegally. MUSKULOSKELETAL: ROM intact to all extremities. No joint erythema or tenderness. Normal muscular development. There is tenderness with palpation over the left posterior shoulder to the base of the neck over the trapezius muscle without spasm. EXTREMITIES: No significant deformity or joint abnormality. No edema. Peripheral pulses intact. NEUROLOGICAL: Strength and sensation symmetric and intact throughout. SKIN: Skin normal color, texture and turgor with no lesions or eruptions. Triage Information Reviewed: Yes Vital Signs: Initial Vital Signs Temp 98.5 F 07/03/18 10:27 Pulse 89 07/03/18 10:27 Resp 18 07/03/18 10:27 BP 140/86 07/03/18 10:27 Pulse Ox 97 07/03/18 10:27 Vital Signs Reviewed: Yes Diagnostics - EKG Cardiac Rate: NL Cardiac Rhythm: Sinus: Normal Ectopy: None ST Segment: Normal Summary of EKG Findings: NSR w/o ectopy. Regular rate at 68 bpm. T-wave invesion lead III. No previous EKG for comparison. Shoulder Course/Dx - Course Course Of Treatment: 42-year-old male presents with complaints of left shoulder pain. States he awoke this morning with discomfort in the left posterior shoulder that radiates to the base of his neck. Describes the pain as a constant "tight, pulling" sensation. Nonradiating. Worsens with movement. States he took one dose of naproxen this morning without relief. Afebrile. VSS. Exam reveals tenderness over the left trapezius without spasm. EKG NSR without ectopy or ST elevation. There was some T-wave inversion in lead III. No previous for comparison. Symptoms likely muscular in origin. Will treat conservatively with NSAIDs and heat. He is to follow up with PCP in 7 days if symptoms persist. Warning symptoms were reviewed with patient. Verbalizes understanding and agrees with POC. - Differential Dx/Diagnosis Differential Diagnosis/HQI/PQRI: Arthritis, Contusion, Rotator Cuff Injury, Sprain, Strain, Other - CAD/PR Provider Diagnosis: Strain of left trapezius muscle Discharge - Sign-Out/Discharge Documenting (check all that apply): Patient Departure All imaging exams completed and their final reports reviewed: No Studies - Discharge Plan Condition: Stable Disposition: HOME Prescriptions: Cyclobenzaprine HCl 10 mg PO Q8HR PRN #15 tablet PRN Reason: Spasms Naproxen [Naproxen 500 mg tab] 500 mg PO Q12HR #30 tablet Patient Education Materials: Muscle Strain (ED) Forms: *Work Release Referrals: Kevin Ochoa MD [Primary Care Provider] - 7 Days (If symptoms persist) Additional Instructions: The EKG that was performed in the clinic today was normal. I suspect that your symptoms are from a muscle strain of your back and neck. Take naproxen 1 tab every 12 hours with food for next 7 days. After 7 days you may take every 12 hours as needed for pain. Use cyclobenzaprine 1 tab every 8 hours as needed for severe pain or spasm. This medication will cause drowsiness so do not take and drive or operate machinery. Use warm moist heat to the affected area 4 times a day to help relax the muscles. Follow up with your primary care provider in 7 days if symptoms persist. Seek immediate medical attention in the emergency room if your develop fever greater than 100.5 F, have chest pain, feel as if your heart is racing or skipping beats, have shortness of breath, you develop weakness, numbness, or tinging in the arm, or have any worsening of symptoms. - Billing Disposition and Condition Condition: STABLE Disposition: Home - Attestation Statements Provider Attestation: I was available for consult. This patient was seen by the JAY JAY. The patient was not presented to, seen by, or examined by me. -Francisca
== END 2018-07-03 11:42 | disposition home or self-care (01) ==
LOC: UCCORT 10:16
DX: S29.012A Strain of muscle and tendon of back wall of thorax, initial encounter (principal); X58.XXXA Exposure to other specified factors, initial encounter; Y92.9 Unspecified place or not applicable; E11.9 Type 2 diabetes mellitus without complications; I10 Essential (primary) hypertension
CPT/HCPCS: 93005; 99212; G0463